=== PATIENT | female | born 1995 | race Caucasian/White ===

== ENCOUNTER 2023-06-07 10:26 | Outpatient (AMB) | payer OTHER, SELFPAY ==
--- NOTE | 2023-06-07 10:47 | MHC.PC.OV ---
Vital Signs 06/07/23 10:50 Height 5 ft 1 in Weight 299 lb BMI 56.5 Blood Pressure Location Lt brachial Position Sitting Pulse Source Pulse Oximeter Oxygen Delivery Method Room Air Intake Visit Reasons: follow up/ forms Intake Note: patient did not want to get vitals taken due to anxiety, at home she got 125/79 with a pulse of 77. Allergies No Known Allergies [No Known Allergies*] Allergy (Verified 06/07/23 10:50) Tobacco use date assessed: 06/07/23 Dental Screening Dental Screen Date: 06/07/23 Did you have a dental visit in the last 12 months?: Yes Did you have a dental problem in the last 6 months where you did not have access to dental care?: No Was dental information given to patient?: Patient has dentist HPI follow up/ forms HPI Details 28-year-old morbidly obese female with a history of allergy problems coming in for follow-up. Last seen in September 2020. L ear pain. fomr- need for visual impairment- retinopathy- Patient sees Dr. Sea Christy for the eye appt. deny any allergy symptoms right now. [facility] Medical History (Updated 06/07/23 @ 11:25 by Ronald England MD) Anxiety Obesity Otitis media Retinal detachment Surgical History History of eye surgery Family History (Updated 06/07/23 @ 11:05 by Vannesa Whitten CMA) Father Diabetes Mother Diabetes Paternal Grandfather Lung cancer Other Mental health disorder Social History Housing: House Patient Tobacco Use Status: Never used Tobacco e-Cigarette/Vaping Use: Never Used Second Hand Smoke Exposure: No Current occupational status: employed Current occupational exposures/hazards: No Cognitive needs: No Hearing needs: No Vision needs: Yes Questionnaire PHQ-9 Over the last 2 weeks, how often have you been bothered by any of the following problems? 1. Little interest or pleasure in doing things: not at all 2. Feeling down, depressed, or hopeless: not at all 3. Trouble falling or staying asleep, or sleeping too much: not at all 4. Feeling tired or having little energy: not at all 5. Poor appetite or overeating: not at all 6. Feeling bad about yourself - or that you are a failure or have let yourself or your family down: not at all 7. Trouble concentrating on things, such as reading the newspaper or watching television: not at all 8. Moving or speaking so slowly that other people could have noticed. Or the opposite - being so fidgety or restless that you have been moving around a lot more than usual: not at all 9. Thoughts that you would be better off or of hurting yourself in some way: not at all Total score: 0 Depression Screening Interpretation: Negative Source: Developed by Drs. Tyshawn Bojorquez, Apple Johnson, Vu Schwartz and colleagues, with an educational jose from [employer]. Thrive Questionnaire Date Thrive assessed: 06/07/23 I am a: Patient What is your living situation today?: I have a steady place to live Within the past 12 months, did the food you bought not last and you didn't have the money to get more?: Never true Within the past 12 months, did you worry whether your food would run out before you got money to buy more?: Never true Do you have trouble paying for medicines?: No Do you have trouble getting transportation to medical appointments?: No Do you have trouble paying your heating and electricity bill?: No Do you have trouble taking care of your child, family member or friend?: No Do you have trouble with day-to-day activities such as bathing, preparing meals, shopping, managing finances, etc.?: No Are you currently unemployed and looking for a job?: No Are you interested in more education?: No Currently or been in a relationship where the following occur: no concerns reported AUDIT C Alcohol Use Questionnaire (AUDIT-C) 1. How often do you have a drink containing alcohol?: Never Total Score: 0 NAYE-7 AMB Questionnaire NAYE-7 Date NAYE - 7 assessed: 06/07/23 Feeling nervous, anxious, or on edge: 3 = Nearly every day Not being able to stop or control worryin = Nearly every day Worrying too much about different things: 3 = Nearly every day Trouble relaxin = Nearly every day Being so restless that it is hard to sit still: 3 = Nearly every day Becoming easily annoyed or irritable: 3 = Nearly every day Feeling afraid as if something awful might happen: 3 = Nearly every day Total NAYE-7 score (0-4 normal; 5-9 mild; 10-14 moderate; 15-21 severe): 21 Source: Developed by Drs. Tyshawn Bojorquez, Apple Johnson, Vu Schwartz and colleagues, with an educational jose from [employer]. Physical exam (Primary Care) Vital Signs: Oxygen Delivery Method Room Air 06/07/23 10:50 BMI result Body Mass Index 56.5 Tobacco/Smoking Status: Tobacco use Status Tobacco use date assessed 06/07/23 06/07/23 11:07 Patient Tobacco Use Status Never used Tobacco 06/07/23 11:07 Tobacco use type 06/07/23 11:07 e-Cigarette/Vaping Use Never Used 06/07/23 11:07 PHQ-9: PHQ-9 Score PHQ-9: Total score 0 06/07/23 11:07 Depression Screening Interpretation: Negative Thrive Assessment: Date of Thrive Assessment Date Thrive assessed 06/07/23 06/07/23 10:55 Currently or been in a relationship where the following occur: no concerns reported Const General: alert; No acute distress Eyes Conjunctivae: conjunctivae normal Resp Auscultation: clear to auscultation bilaterally Cardio Rate: regular rate Rhythm: regular rhythm GI Inspection: Yes normal to inspection Extrem General: Yes normal to inspection and No edema Assessment and Plan Assessment & Plan (1) Obesity: Code(s): E66.9 - Obesity, unspecified Plan: Diet and exercise (2) Allergic rhinitis: Code(s): J30.9 - Allergic rhinitis, unspecified Plan: [id number] Claritin or Madeleine can be used (3) Retinal detachment: Comment: 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
[2023-06-07 10:50] VITALS: BMI 56.5
== END 2023-06-07 12:46 | disposition home or self-care (01) ==
PROVIDERS: PCP Internal Medicine; Visit Provider Internal Medicine
DX: J30.9 Allergic rhinitis, unspecified (principal); E66.9 Obesity, unspecified; H33.21 Serous retinal detachment, right eye; Z68.43 Body mass index [BMI] 50.0-59.9, adult; H54.7 Unspecified visual loss
CPT/HCPCS: 99214

== ENCOUNTER 2023-09-10 10:13 | Outpatient (AMB) | payer OTHER, SELFPAY ==
[2023-09-10 13:20] VITALS: BP 122/82; PULSE 126; TEMP 36.7; O2SAT 97; BMI 55.2
--- NOTE | 2023-09-10 13:20 | AM.OFFWIN_ITS ---
Intake Vital Signs 09/10/23 13:20 Height 5 ft 1 in Weight 292 lb 4 oz BMI 55.2 BP 122/82 Blood Pressure Location Rt brachial Position Sitting Pulse 126 H Pulse Source Pulse Oximeter Temp 98.0 F Temp Source Temporal Artery Scan Pulse Oximetry (%) 97 Oxygen Delivery Method Room Air Intake Visit Reasons: EP AB discomfort since sunday [phone] Intake Note: pt is here for c/o abd discomfort since sunday Patient Tobacco Use Status: Never used Tobacco Allergies No Known Allergies [No Known Allergies*] Allergy (Verified 09/10/23 13:53) Medication List - Last Reconciled 09/10/23 by Jani Fan MD No Known Home Meds Do you need a note to return to daycare/school/sports/work: Yes HPI EP AB discomfort since sunday [phone] HPI Details 28-year-old female presents to the [facility] for a sick visit. Patient is complaining of a low-grade abdominal pain. Symptoms started on Sunday. She was constipated on Sunday and Sunday. Symptoms got much better after a bowel movement. No history of nausea or vomiting. No fevers or chills. [facility] Medical History (Updated 06/07/23 @ 11:31 by Ronald England MD) Retinal detachment Anxiety Obesity Otitis media Surgical History History of eye surgery Family History (Updated 06/07/23 @ 11:05 by Vannesa Whitten CMA) Father Diabetes Mother Diabetes Paternal Grandfather Lung cancer Other Mental health disorder Social History Housing: House Patient Tobacco Use Status: Never used Tobacco e-Cigarette/Vaping Use: Never Used Second Hand Smoke Exposure: No Current occupational status: employed Current occupational exposures/hazards: No Cognitive needs: No Hearing needs: No Vision needs: Yes Physical Exam Vital Signs: Last Vital Signs Temp 98.0 F 09/10/23 13:20 Pulse 126 H 09/10/23 13:20 BP 122/82 09/10/23 13:20 Pulse Ox 97 09/10/23 13:20 Oxygen Delivery Method Room Air 09/10/23 13:20 BMI result Body Mass Index 55.2 Const General: cooperative and healthy appearing Nutritional Appearance: well nourished Orientation/consciousness: patient oriented x3 Limitations: no limitations HEENT Head: Yes normal to inspection Eyes General: appearance normal, both eyes and all related structures Neck Neck: Yes normal visual inspection Chest Chest palpation & inspection: normal palpation of entire chest wall Resp Effort & Inspection: normal respiratory effort Neuro General: patient oriented x3 Assessment & Plan Assessment & Plan (1) Abdominal pain: Code(s): R10.9 - Unspecified abdominal pain Plan: Self-limiting illness. PPI added to the regimen. Coding Level of Care Code Est Pt Level 3 (67037) Diagnoses Abdominal pain R10.9
== END 2023-09-10 14:05 | disposition home or self-care (01) ==
PROVIDERS: PCP Internal Medicine; Visit Provider Internal Medicine
DX: R10.9 Unspecified abdominal pain (principal)
CPT/HCPCS: 99213

== ENCOUNTER 2024-03-26 14:45 | Emergency (ER) | payer OTHER, SELFPAY ==
--- NOTE | ~2024-03-26 | CT_ITS ---
EXAMINATION: CT ABDOMEN AND PELVIS WITH CONTRAST CLINICAL INFORMATION: Diffuse abdominal pain COMPARISON: None available. TECHNIQUE: Multidetector volumetric images were obtained from the superior aspect of the liver through the pubic symphysis following administration 100 mL of Omnipaque 350 intravenous contrast. Sagittal and coronal reformatted images were obtained on the technologist's workstation. Oral contrast: No This CT examination was performed using dose optimization techniques as appropriate, variously including the following: *Automated exposure control *Adjustment of mA and/or kV according to patient size (this includes techniques or standardized protocols for targeted exams where dose is matched to indication/reason for exam; i.e. extremities or head) *Use of iterative reconstruction technique DLP: 1341 mGy-cm FINDINGS: LUNG BASES: The visualized lung bases are unremarkable. LIVER, GALLBLADDER, AND BILIARY TREE: The liver is enlarged at 21 cm in cephalocaudad dimension with decreased attenuation consistent with hepatic steatosis. No focal hepatic lesion or biliary ductal dilatation is present. Gallstones are present in the gallbladder and the gallbladder wall appears thickened with some mild pericholecystic inflammatory change seen. Inflammatory change extends to the superior wall of the hepatic flexure. PANCREAS: Unremarkable. SPLEEN: Spleen is mildly enlarged at 12.4 cm in greatest dimension. ADRENAL GLANDS: Unremarkable. KIDNEYS AND URETERS: The kidneys are normal in size, shape, and attenuation. No hydronephrosis, hydroureter, or calculi seen. No perinephric stranding. BLADDER: Unremarkable. GASTROINTESTINAL TRACT: The small and large bowel are unremarkable aside from some minimal inflammatory change at the hepatic flexure adjacent to the gallbladder. The appendix is unremarkable. ABDOMINAL WALL: No significant hernia is appreciated. Tiny periumbilical hernia seen containing only fat. LYMPH NODES: Normal. VASCULAR: Unremarkable. PELVIC VISCERA: The uterus and adnexa are unremarkable. There is a 2.3 cm right ovarian cyst present which needs no additional imaging or follow-up. OSSEOUS STRUCTURES: Unremarkable. CT/CT abdomen pelvis w IV con IMPRESSION: 1. Cholelithiasis with gallbladder wall thickening and pericholecystic inflammatory change. Findings are consistent with acute cholecystitis. 2. Incidental note made of enlarged fatty liver and mild splenomegaly. Fleischner guidelines were followed.
--- NOTE | ~2024-03-26 | US_ITS ---
EXAMINATION: US ABDOMEN LIMITED CLINICAL INFORMATION: Diffuse abdominal pain. COMPARISON: CT of the abdomen and pelvis from the same day TECHNIQUE: Real-time imaging of the right upper quadrant abdominal viscera. FINDINGS: PANCREAS: Normal. LIVER: Normal. The liver is normal in size. The liver contour is normal. Parenchymal echogenicity is normal. No focal hepatic lesion. There is no intrahepatic biliary duct dilatation seen. GALLBLADDER: The gallbladder is normal in size. There are gallstones. There is focal gallbladder wall thickening and fluid in the gallbladder wall in the fundus. COMMON BILE DUCT: Normal in caliber measuring 0.3 cm in diameter. RIGHT KIDNEY: Normal. No hydronephrosis. No renal calculi or focal parenchymal lesions. The kidney measures 10.8 cm in maximum dimension. FREE FLUID: None. US/US abdomen limited IMPRESSION: Gallstones. Focal gallbladder wall thickening and fluid in the gallbladder wall in the fundus. Findings are questionable for cholecystitis versus adenomyomatosis of the gallbladder wall.
[2024-03-26 15:03] VITALS: BP 154/94; PULSE 123; RESP 18; TEMP 36.7; O2SAT 99; BMI 57.4
--- NOTE | 2024-03-26 15:06 | ED.GENADULT ---
HPI - General Adult General Stated complaint: Nausea, vomiting, back pain Related Data Previous Rx's ?Medication ?Instructions ?Recorded pantoprazole 40 mg tablet,delayed 40 mg PO DAILY #14 tabs 09/10/23 release Allergies Allergy/AdvReac Type Severity Reaction Status Date / Time No Known Allergies Allergy Verified 03/26/24 15:07 [No Known Allergies*] [facility] Past Medical History Medical History (Updated 12/07/23 @ 18:35 by Ronald England MD) Retinal detachment Anxiety Obesity Otitis media Surgical History History of eye surgery Family History Family History (Updated 06/07/23 @ 11:05 by Vannesa Whitten CMA) Father Diabetes Mother Diabetes Paternal Grandfather Lung cancer Other Mental health disorder Social History Social History Housing: House Patient Tobacco Use Status: Never used Tobacco e-Cigarette/Vaping Use: Never Used Second Hand Smoke Exposure: No Current occupational status: employed Current occupational exposures/hazards: No Cognitive needs: No Hearing needs: No Vision needs: Yes Course Course Course Narrative: This is an RME done by [facility]: Additional HPI, ROS, PE not included below will be deferred to primary provider. 29-year-old female presents with abdominal pain, flank pain/back pain, nausea, vomiting ongoing for the past few days worsening. No associated trauma. No history of kidney stones. No nausea, vomiting, urinary changes, changes in bowel habits, numbness, tingling, saddle paresthesias. Patient ambulatory into triage Appearance: Alert.? Oriented X3.? No acute cardiopulmonary distress distress.? Head: Normocephalic, atraumatic, no step-offs or deformities ENT: Pharynx normal.??External ears normal, TMs normal bilaterally and EAC's normal. No pain with manipulation of external ears bilaterally. No mastoid tenderness. Neck: Normal inspection.? Neck supple.? CVS: Pulses normal.?RRR Respiratory: No respiratory distress.?CTA Abdomen: Soft and nontender.? Skin: ? Normal skin color. Extremities: 5/5 strength to bilateral upper and lower extremities Neuro: Oriented X 3.? No motor deficit.? No sensory deficit. Discharge Plan Discharge Prescriptions: No Action pantoprazole 40 mg tablet,delayed release (DR/EC) 40 mg PO DAILY Qty: 14 0RF Print Language: [place] Citizen
[2024-03-26 16:05] LABS: MANUAL DIFF FLAG NO
--- NOTE | 2024-03-26 16:07 | PC.NURSE ---
a&ox4. vss and up to date aside from being slightly hypertensive. pt presents to the ED w/ ongoing bilateral flank pain x 2 weeks. atraumatic. pt also c/o lower abd pain/n/v/d x this am. no positive effect w/ tylenol or ibuprofen. abd tender upon palpation. pt denies urinary sx/fever/chills. 20gIV placed in the left forearm - labs obtained/sent to lab. UA obtained/sent to lab. pt seen by ED provider/aware of plan of care moving forward. no sob/wob noted. respirations even and unlabored. plan of care ongoing. call bridges placed within reach.
--- NOTE | 2024-03-26 16:09 | ED_ITS ---
HPI - Abdominal Pain General Chief Complaint: Abdominal Pain Stated Complaint: Nausea, vomiting, back pain Time Seen by Provider: 03/26/24 15:57 Source: patient Mode of arrival: ambulatory Limitations: no limitations History of Present Illness ED Provider: Dr. Coby Wadsworth HPI narrative: Patient comes to the emergency room complaining of bilateral lower back pain/ flank pain and abdominal pain. Patient states that over last 2 weeks, she has had intermittent pain, but she puts a hot compress and takes ibuprofen and the pain self-resolved. However, over the last 24 hours, the pain has been constant, nonradiating. Patient had 1 episode of nausea/ vomiting, no diarrhea. Denies fever or chills. Denies any injury or trauma. Related Data Previous Rx's ?Medication ?Instructions ?Recorded pantoprazole 40 mg tablet,delayed 40 mg PO DAILY #14 tabs 09/10/23 release ketorolac 10 mg tablet 10 mg PO Q8H PRN pain #10 tabs 03/26/24 ondansetron HCl 4 mg tablet 4 mg PO Q8H PRN nausea and 03/26/24 vomiting #10 tabs oxycodone 5 mg tablet 5 mg PO BID PRN pain #6 tabs 03/26/24 Allergies Allergy/AdvReac Type Severity Reaction Status Date / Time No Known Allergies Allergy Verified 03/26/24 15:07 [No Known Allergies*] Review of Systems Review of Systems Constitutional : No Weight loss, No Fever, No Chills, No Night Sweats, No Fatigue, No Malaise ENT/Mouth : No Hearing loss, No Ear Pain, No Nasal Congestion, No Sinus Pain, No Hoarseness, No sore throat, No Rhinorrhea, No Swallowing Difficulty Eyes: No Eye Pain, No Swelling, No Redness, No Foreign Body, No Discharge, No Vision Changes Cardiovascular : No Chest Pain, No SOB, No Dyspnea on Exertion, No Orthopnea, No Edema, No Palpitations Respiratory : No Cough, No Sputum, No Wheezing, No Smoke Exposure, No Dyspnea Gastrointestinal Complaining of 1 episode of nausea/vomiting, No Diarrhea, No Constipation, No abdominal Pain, No Hematochezia, No Melena Genitourinary : no irregular bleeding, No Dysuria, No Urinary Frequency, No Hematuria, No Urinary Incontinence, No Urgency, No Urinary Flow Changes, No Hesitancy Musculoskeletal : complaining of bilateral back pain /flank pain. No joint pain, No Myalgias, No Joint Swelling Skin : No Skin Lesions, No rash Neuro : No Weakness, No Numbness, No Paresthesias, No Loss of Consciousness, No Dizziness, No Headache Psych : No Anxiety/Panic, No Depression, No SI/HI/AH/VH, No Social Issues, Heme/Lymph: No Bruising, No Bleeding,No Lymphadenopathy Endocrine : No Polyuria, No Polydipsia, No Temperature Intolerance [facility] Past Medical History Medical History Retinal detachment Anxiety Obesity Otitis media Surgical History History of eye surgery Family History Family History (Updated 06/07/23 @ 11:05 by Vannesa Whitten CMA) Father Diabetes Mother Diabetes Paternal Grandfather Lung cancer Other Mental health disorder Social History Social History Housing: House Patient Tobacco Use Status: Never used Tobacco e-Cigarette/Vaping Use: Never Used Second Hand Smoke Exposure: No Current occupational status: employed Current occupational exposures/hazards: No Cognitive needs: No Hearing needs: No Vision needs: Yes Physical Exam ED Vital Signs: Vital Signs - 24 hr 03/26/24 15:03 03/26/24 17:40 03/26/24 20:17 Temperature 98.1 F 98.0 F 98.0 F Pulse Rate 123 H 109 H 107 H Respiratory Rate 18 18 16 Blood Pressure 154/94 H 123/75 138/78 Pulse Oximetry 99 100 Oxygen Delivery Method Room Air Room Air Room Air BMI result Body Mass Index 57.4 Const Other: Appearance: Alert. Oriented X3. No acute distress. Eyes: Patient as histoy of partial b ENT: Pharynx normal. Neck: Normal inspection. Neck supple. No lymph nodes noted. No crepitus CVS: Normal heart rate and rhythm. Pulses normal. Normal S1 and S2 Respiratory: No respiratory distress. Breath sounds normal. No Wheezing. No rales Abdomen: Soft and nontender. No rigidity. No distention. Skin: Skin warm and dry. Normal skin color. Normal skin turgor. Extremities: No lower extremity edema. No Lacerations. No Rash Neuro: Oriented X 3. No motor deficit. No sensory deficit. Moving all extremities. No slurred speech. CN 2 through 12 grossly intact Psych: calm, cooperative, normal affect Medical Decision Making Medical Decision Making [facility] Narrative: - my interpretation of labs: Normal hematology and chemistry, normal LFTs - my interpretation of abdomen: Gallbladder. Radiology report: Acute cholecystitis - on physical exam, patient has negative Aparicio sign, no rebound, no guarding, looks fairly comfortable, LFTs are normal, unlikely to be acute cholecystitis. - An ultrasound shows gallbladder wall thickening with fluid, possible cholecystitis versus adenomyomatosis - patient has received a dose of ketorolac and morphine. Patient feeling much better. - I discussed the patient and radiology findings with Dr. Remy from surgery, since patient is doing much better, patient can go home. However, patient does have a large gallstone and will eventually need a cholecystectomy. - I discussed the options with the patient, Being admitted in likely has surgery tomorrow if patient is in significant amount of pain versus following up outpatient with Dr. Remy. Patient states that she feels well, does not want to be admitted today, prefers to follow up with Dr. Remy and is aware that she may need scheduled cholecystectomy - I discussed with the patient that if she continues having pain and she has no relief from her pain medications, she needs to come back before her appointment were surgery, in plan to being admitted to the hospital for cholecystectomy. Patient agrees with plan Differential Diagnosis Differential Diagnoses: The differential diagnosis associated with the presentation includes ( cholecystitis, pancreatitis, kidney stones) Admission/Observation Consideration of admission/observation: Escalation of care including admission/observation considered ( admission was offered. Patient prefers to follow-up outpatient) Consult Healthcare Provider Management of the patient was discussed with: Specialty Therapist Lab Data [facility] Lab Attestation statement: I reviewed the patient's lab results. 03/26/24 16:01 03/26/24 16:01 Labs: Lab Results 03/26/24 Range/Units 16:01 WBC 11.0 H (4.8-10.8) X10*3/uL RBC 4.91 (4.20-5.50) X10*6/uL Hgb 14.6 (12.0-16.0) g/dl Hct 42.6 (37.0-47.0) % MCV 86.8 (80.0-98.0) fL MCH 29.7 (27.0-33.0) pg MCHC 34.3 (31.0-35.0) g/dl RDW 12.3 (11.0-16.0) % Plt Count 408 H (160-400) X10*3/uL MPV 9.2 L (9.4-12.3) fL Immature Gran % (Auto) 0.5 H (0.0-0.4) % Neut % (Auto) 80.7 H (45-73) % Lymph % (Auto) 13.1 L (20-40) % [place] % (Auto) 4.7 (2-11) % Eos % (Auto) 0.5 (0-4) % Baso % (Auto) 0.5 (0-2) % Lymph # (Auto) 1.4 (1.2-4.9) X10*3/uL [place] # (Auto) 0.5 (0.1-1.2) X10*3/uL Eos # (Auto) 0.1 (0.0-0.4) X10*3/uL Baso # (Auto) 0.1 (0.0-0.2) X10*3/uL Abs Immat Gran (auto) 0.05 H (0.00-0.03) X10*3/uL Absolute Neuts (auto) 8.9 H (2.0-8.3) x10*3/uL Absolute Nucleated RBC 0.000 (0.0-0.012) X10*3/uL Nucleated RBC % (auto) 0.0 (0.0-0.2) /100WBC Sodium 138 (135-145) mmol/L Potassium 3.9 (3.3-5.1) mmol/L Chloride 105 (96-108) mmol/L Carbon Dioxide 23 (22-29) mmol/L Anion Gap 14 (12-20) BUN 8 L (9-16) mg/dL Creatinine 0.84 (0.5-1.4) mg/dL Estim Creat Clear Calc 132.9 Estimated GFR > 60 Random Glucose 100 (60-115) mg/dL Calcium 9.1 (8.4-10.2) mg/dL Total Bilirubin 0.4 (0.0-1.0) mg/dL AST 18 (5-31) U/L ALT 21 (0-31) U/L Alkaline Phosphatase 47 (39-117) U/L Total Protein 7.7 (6.5-8.0) g/dL Albumin 4.1 (3.5-5.0) g/dL Lipase 15 (8-78) U/L Beta HCG, Quant < 2 mIU/mL Urine Color Yellow Urine Appearance Cloudy Urine pH 5.5 (5.0-9.0) Ur Specific [place] 1.020 (1.005-1.025) Urine Protein Negative (Neg-Trace) mg/dL Urine Glucose (UA) Negative (Negative) mg/dL Urine Ketones Negative (Negative) mg/dL Urine Blood Negative (Negative) Urine Nitrite Negative (Negative) Ur Leukocyte Esterase Small (1+) H (Negative) Urine RBC 0-2 (0-2) /HPF Urine WBC 0-5 (0-5) /HPF Ur Squamous Epith Cells 3-5 (0-2) /HPF Urine Bacteria Trace (None Seen) Hyaline Casts 0-2 (0-2) /LPF Independent Interpretation I performed an independent interpretation of an: CT Scan Radiology Impression Discussion of test interpretation with radiology: I have reviewed the radiologist's reading. Radiologist Impression: Gallstones. Focal gallbladder wall thickening and fluid in the gallbladder wall in the fundus. Findings are questionable for cholecystitis versus adenomyomatosis of the gallbladder wall. FINDINGS: LUNG BASES: The visualized lung bases are unremarkable. LIVER, GALLBLADDER, AND BILIARY TREE: The liver is enlarged at 21 cm in cephalocaudad dimension with decreased attenuation consistent with hepatic steatosis. No focal hepatic lesion or biliary ductal dilatation is present. Gallstones are present in the gallbladder and the gallbladder wall appears thickened with some mild pericholecystic inflammatory change seen. Inflammatory change extends to the superior wall of the hepatic flexure. PANCREAS: Unremarkable. SPLEEN: Spleen is mildly enlarged at 12.4 cm in greatest dimension. ADRENAL GLANDS: Unremarkable. KIDNEYS AND URETERS: The kidneys are normal in size, shape, and attenuation. No hydronephrosis, hydroureter, or calculi seen. No perinephric stranding. BLADDER: Unremarkable. GASTROINTESTINAL TRACT: The small and large bowel are unremarkable aside from some minimal inflammatory change at the hepatic flexure adjacent to the gallbladder. The appendix is unremarkable. ABDOMINAL WALL: No significant hernia is appreciated. Tiny periumbilical hernia seen containing only fat. LYMPH NODES: Normal. VASCULAR: Unremarkable. PELVIC VISCERA: The uterus and adnexa are unremarkable. There is a 2.3 cm right ovarian cyst present which needs no additional imaging or follow-up. OSSEOUS STRUCTURES: Unremarkable. CT/CT abdomen pelvis w IV con IMPRESSION: 1. Cholelithiasis with gallbladder wall thickening and pericholecystic inflammatory change. Findings are consistent with acute cholecystitis. 2. Incidental note made of enlarged fatty liver and mild splenomegaly. Medications Administered Discontinued Medications Generic Name Dose Route Start Last Admin Trade Name Freq PRN Reason Stop Dose Admin Sodium Chloride 1,000 mls @ 999 mls/hr 03/26/24 16:09 03/26/24 17:41 Ns IVCONT 03/26/24 17:09 Infused .Q1H1M ONE Infusion Iohexol 100 ml 03/26/24 16:49 03/26/24 16:49 Iohexol 350 Mg/Ml 100 Ml Infus..Btl IV 03/26/24 16:50 100 ml ONCE ONE Administration Ketorolac Tromethamine 30 mg 03/26/24 16:09 03/26/24 16:19 Ketorolac Tromethamine 30 Mg/Ml Vial IVPUSH 03/26/24 16:10 30 mg ONCE ONE Administration Morphine Sulfate 2 mg 03/26/24 17:34 03/26/24 17:41 Morphine Sulfate 2 Mg/Ml Cartridge IVPUSH 03/26/24 17:35 2 mg ONCE ONE Administration Protocol Morphine Sulfate 2 mg 03/26/24 18:31 03/26/24 19:01 Morphine Sulfate 2 Mg/Ml Cartridge IVPUSH 03/26/24 18:32 2 mg ONCE ONE Administration Protocol Critical Care Time Critical Care Time Critical Care Time: Yes Total Critical Care Time: 60 Attestation: I have personally provided critical care time. Time includes review of lab data, radiology results, discussion with consultants, and monitoring for potential decompensation. Intervention performed as documented. Discharge Plan Discharge Clinical Impression: Cholelithiasis Patient Disposition: Home, Self-Care Instructions: Gallstones (ED) Additional Instructions: Please follow-up with your primary care physician tomorrow. If you have any worsening or new symptoms, please return to the emergency room or call 911 Prescriptions: New ketorolac 10 mg tablet 10 mg PO Q8H PRN (Reason: pain) Qty: 10 0RF Rx Instructions: maximum total duration of 5 days from all oral, intranasal, or parenteral formulations oxycodone 5 mg tablet 5 mg PO BID PRN (Reason: pain) Qty: 6 0RF Rx Instructions: Partial Fill upon patient request. use only if ketorolac does not help with the pain ondansetron HCl 4 mg tablet 4 mg PO Q8H PRN (Reason: nausea and vomiting) Qty: 10 0RF No Action pantoprazole 40 mg tablet,delayed release (DR/EC) 40 mg PO DAILY Qty: 14 0RF Print Language: Kisw[place]
[2024-03-26 16:12] LABS: Basophils Absolute Auto 0.1 X10*3/uL (0.0-0.2); Basophils Percent Auto 0.5 % (0-2); Eosinophils Absolute Auto 0.1 X10*3/uL (0.0-0.4); Eosinophils Percent Auto 0.5 % (0-4); Hematocrit 42.6 % (37.0-47.0); Hemoglobin 14.6 g/dl (12.0-16.0); Imm Gran Abs Auto 0.05 X10*3/uL (0.00-0.03); Imm Gran Pct Auto 0.5 % (0.0-0.4); Lymphocytes Absolute Auto 1.4 X10*3/uL (1.2-4.9); Lymphocytes Percent Auto 13.1 % (20-40); Mean Corpuscular HGB Conc 34.3 g/dl (31.0-35.0); Mean Corpuscular Hemoglobin 29.7 pg (27.0-33.0); Mean Corpuscular Volume 86.8 fL (80.0-98.0); Mean Platelet Volume 9.2 fL (9.4-12.3); Monocytes Absolute Auto 0.5 X10*3/uL (0.1-1.2); Monocytes Percent Auto 4.7 % (2-11); Neutrophils Absolute Auto 8.9 x10*3/uL (2.0-8.3); Neutrophils Percent Auto 80.7 % (45-73); Platelet Count 408 X10*3/uL (160-400); Red Blood Count 4.91 X10*6/uL (4.20-5.50); Red Cell Distribution Width 12.3 % (11.0-16.0)
[2024-03-26] MEDS: 0.9 % Sodium Chloride 1,000 ML 999 ML IVCONT (16:19)
[2024-03-26] MEDS: Ketorolac Tromethamine 30 MG/ML VIAL IVPUSH (16:19)
--- NOTE | 2024-03-26 16:21 | PC.NURSE ---
pt c/o 05/07 abd pain. medication/IVF administered per provider order. effectiveness pending. pt waiting to go to CT at this time. pt resting comfortably w/ the lights dimmed. call bridges placed within reach.
[2024-03-26 16:22] LABS: Appearance Urine Cloudy; Color Urine Yellow; Glucose Urine UA Negative (Negative); Leukocyte Esterase Urine Small (1+) (Negative); Nitrite Urine Negative (Negative); PH 5.5 (5.0-9.0); UMIC TRIGGER UACC YES; Urine Blood Negative (Negative); Urine Ketones Negative (Negative); Urine Protein Negative (Neg-Trace)
[2024-03-26 16:28] LABS: Alanine Aminotransferase 21 U/L (0-31); Albumin Level 4.1 g/dL (3.5-5.0); Alkaline Phosphatase 47 U/L (39-117); Anion Gap 14 (12-20); Aspartate Amino Transferase 18 U/L (5-31); Bilirubin Total 0.4 mg/dL (0.0-1.0); Blood Urea Nitrogen 8 mg/dL (9-16); Calcium 9.1 mg/dL (8.4-10.2); Carbon Dioxide 23 mmol/L (22-29); Chloride 105 mmol/L (96-108); Creatinine Clr Calc Pharmacy 132.9; Estimated Glomerular Filt Rate > 60; Glucose Random 100 mg/dL (60-115); HCG Quantitative < 2 mIU/mL; Lipase 15 U/L (8-78); Potassium 3.9 mmol/L (3.3-5.1); Sodium 138 mmol/L (135-145); Total Protein 7.7 g/dL (6.5-8.0)
--- NOTE | 2024-03-26 16:41 | PC.NURSE ---
pt to CT at this time.
[2024-03-26] MEDS: iohexoL 350 MG/ML 100 ML INFUS..BTL IV (16:49)
[2024-03-26 16:55] LABS: Bacteria Urine Trace (None Seen); Hyaline Casts Urine 0-2 /LPF (0-2); RBC Urine 0-2 /HPF (0-2); UACC Culture Trigger YES; WBC Urine 0-5 /HPF (0-5)
[2024-03-26 17:40] VITALS: BP 123/75; PULSE 109; RESP 18; TEMP 36.7; O2SAT 100
[2024-03-26] MEDS: Morphine Sulfate 2 MG/ML CARTRIDGE IVPUSH ×3 (17:41→21:24)
--- NOTE | 2024-03-26 17:55 | PC.NURSE ---
vss and up to date aside from being slightly tachy on the lunchroom monitor. pt c/o increase in abd pain despite medication administration provider notified/aware. pt medicated per provider order. effectiveness pending. pt waiting for CT results at this time. plan of care ongoing. call bridges placed within reach.
[2024-03-26 20:17] VITALS: BP 138/78; PULSE 107; RESP 16; TEMP 36.7
[2024-03-26 21:24] VITALS: RESP 18
[2024-03-26 21:35] VITALS: BP 138/78; PULSE 107; RESP 16; TEMP 36.7; O2SAT 100
== END 2024-03-26 21:38 | disposition home or self-care (01) ==
PROVIDERS: Physician Assistant; Emergency Provider Emergency Medicine; PCP Internal Medicine
DX: K80.20 Calculus of gallbladder without cholecystitis without obstruction (principal); R10.9 Unspecified abdominal pain; E66.9 Obesity, unspecified; Z68.43 Body mass index [BMI] 50.0-59.9, adult; Z79.899 Other long term (current) drug therapy
CPT/HCPCS: 36415; 74177; 76705; 80053; 81001; 83690; 84702; 85025; 87086; 96361; 96374; 96375; 96376; 99285; J1885; J2270; Q9967

== ENCOUNTER 2024-03-27 10:16 | Outpatient (AMB) | payer OTHER, SELFPAY ==
--- NOTE | 2024-03-27 10:23 | A.OFFVIS_ITS ---
Vital Signs 03/27/24 10:28 Height 5 ft 1 in Weight 303 lb BMI 57.2 BP 142/85 H Blood Pressure Location Lt brachial Position Sitting Pulse 100 Intake Visit Reasons: ER follow up cholelithasis Intake Note: Patient is seen in office for ER follow up visit, following cholelithasis. 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 She presented to the emergency department for further evaluation. She reports her pain was 9/10 in severity. Workup in the emergency department revealed normal LFTs and CBC however CT and ultrasound confirmed gallstones within the gallbladder. After she was given pain medication in the emergency department she felt much improved was hooper bsequently discharged to home. She returns today to discuss possible treatment for her cholelithiasis/cholecystitis. She denies any previous episodes of similar pain. She denies previous abdominal surgeries. [facility] Medical History Retinal detachment Anxiety Obesity Otitis media Surgical History History of eye surgery Family History Father Diabetes Mother Diabetes Paternal Grandfather Lung cancer Other Mental health disorder Social History Housing: House Patient Tobacco Use Status: Never used Tobacco e-Cigarette/Vaping Use: Never Used Second Hand Smoke Exposure: No Current occupational status: employed Current occupational exposures/hazards: No Cognitive needs: No Hearing needs: No Vision needs: Yes Review of Systems Const All systems reviewed & are unremarkable except as noted in HPI and below GI Reports abdominal pain, Reports nausea and Reports vomiting Physical Exam Vital Signs: Last Vital Signs Pulse 100 03/27/24 10:28 BP 142/85 H 03/27/24 10:28 BMI result Body Mass Index 57.2 Const General: cooperative and no acute distress Nutritional Appearance: well nourished Orientation/consciousness: patient oriented x3 Limitations: no limitations HEENT Head: Yes normocephalic and Yes atraumatic Ears: hearing grossly normal bilaterally Resp Effort & Inspection: normal respiratory effort, no audible wheezes, no cough and no respiratory distress Cardio Jugular venous distension: no JVD GI Other: Negative Aparicio sign Inspection: Yes normal to inspection Palpation (GI): Soft to palpation, nontender, no guarding and not rigid Skin Other: Warm, dry, no rash Neuro General: patient oriented x3 Extrem General: Yes normal to inspection and Yes no clubbing, cyanosis or edema Assessment & Plan Assessment & Plan (1) Cholelithiasis: Code(s): K80.20 - Calculus of gallbladder without cholecystitis without obstruction Category: Medical Qualifiers: Cholelithiasis location: gallbladder Cholecystitis presence: with cholecystitis Cholecystitis acuity: acute Biliary obstruction: without biliary obstruction Qualified Code(s): K80.00 - Calculus of gallbladder with acute cholecystitis without obstruction Plan 29-year-old female patient presenting with complaints of abdominal pain beginning in the back and then radiating into the right upper quadrant associated with nausea and vomiting. Workup revealed a calculus of the gallbladder. She continues to have abdominal pain however examination today reveals a negative Aparicio sign. I recommended laparoscopic or possible open cholecystectomy for her acute cholecystitis. After discussion of the procedure, risks, and alternatives, she consents to the surgery. She will be scheduled at her earliest convenience. Medications: Refilled oxycodone Partial Fill upon patient request. use only if ketorolac does not help with the pain 5 mg PO BID PRN 14 tabs 0RF pain K80.20 - Calculus of gallbladder without cholecystitis without obstruction ondansetron HCl 4 mg PO Q8H PRN 10 tabs 0RF nausea and vomiting Coding Level of Care Code New Pt Level 4 (99300) Diagnoses Calculus of gallbladder with acute cholecystitis without obstruction K80.00 Cholelithiasis location: gallbladder Cholecystitis presence: with cholecystitis Cholecystitis acuity: acute Biliary obstruction: without biliary obstruction
[2024-03-27 10:28] VITALS: BP 142/85; PULSE 100; BMI 57.2
== END 2024-03-27 10:49 | disposition home or self-care (01) ==
PROVIDERS: PCP Internal Medicine; Visit Provider Surgery
DX: K80.00 Calculus of gallbladder with acute cholecystitis without obstruction (principal)
CPT/HCPCS: 99204

== ENCOUNTER → 2024-03-27 10:16 | Outpatient (BNVA) | payer OTHER, SELFPAY | PROVIDERS: PCP Internal Medicine; Visit Provider Surgery ==

== ENCOUNTER 2024-03-31 06:49 | Day surgery (SDC) | payer OTHER, SELFPAY ==
[2024-03-31 06:53] VITALS: BMI 56.7
[2024-03-31 07:27] LABS: UPreg QC Valid YES
[2024-03-31 07:28] LABS: Urine Pregnancy NEGATIVE (NEGATIVE)
[2024-03-31 07:52] VITALS: BP 150/104; PULSE 102; RESP 16; TEMP 36.1; O2SAT 98
[2024-03-31] MEDS: Lactated Ringers 1,000 ML 100 ML IVCONT (07:53)
--- NOTE | 2024-03-31 08:10 | P.CONAN_ITS ---
Documented by User: Anais Mercer NP 03/28/24 09:00 HPI - Anesthesia Eval Consult details Narrative: 29yo F for Cholecystectomy Laparoscopic, possible open BMI 57 PMFSH Active Problems Active Problems: All Active Problems Cholelithiasis (Acute) COVID-19 virus infection (Acute) Visual impairment of left eye (Acute) Retinal detachment (Acute) Otitis externa (Acute) Acute sinusitis (Acute) Chronic ear pain (Acute) Allergic rhinitis (Acute) Anxiety (Acute) Obesity (Acute) Otitis media (Acute) Past Medical History Medical History Retinal detachment Anxiety Obesity Otitis media Family History Family History Father Diabetes Mother Diabetes Paternal Grandfather Lung cancer Other Mental health disorder Surgical History Surgical History History of eye surgery Social History Social History Housing: House Patient Tobacco Use Status: Never used Tobacco e-Cigarette/Vaping Use: Never Used Second Hand Smoke Exposure: No Use of substances other than those prescribed or required for medical reasons: No Are you DNR?: No Advance Directives: No Advance Directives Information Provided: Yes Current occupational status: employed Current occupational exposures/hazards: No Cognitive needs: No Hearing needs: No Vision needs: Yes Meds Allergies Allergy/AdvReac Type Severity Reaction Status Date / Time No Known Allergies Allergy Verified 03/31/24 06:58 [No Known Allergies*] Exam Pertinent Lab Results Pertinent Lab Results: Laboratory Tests 03/26/24 16:01 WBC 11.0 H Hgb 14.6 Hct 42.6 Plt Count 408 H Sodium 138 Potassium 3.9 Chloride 105 Carbon Dioxide 23 BUN 8 L Creatinine 0.84 Assessment and Plan Assessment Anesthesia Assessment: Chart Reviewed Documented by User: Evie Aguiar DO 03/31/24 08:11 [facility] Past Medical History Medical History Retinal detachment Anxiety Obesity Otitis media Family History Family History Father Diabetes Mother Diabetes Paternal Grandfather Lung cancer Other Mental health disorder Family history of problems with anesthesia: No Surgical History Surgical History History of eye surgery History of Problems with Anesthesia: No Social History Social History Housing: House Patient Tobacco Use Status: Never used Tobacco e-Cigarette/Vaping Use: Never Used Second Hand Smoke Exposure: No Use of substances other than those prescribed or required for medical reasons: No Are you DNR?: No Advance Directives: No Advance Directives Information Provided: Yes Current occupational status: employed Current occupational exposures/hazards: No Cognitive needs: No Hearing needs: No Vision needs: Yes Meds Allergies Allergy/AdvReac Type Severity Reaction Status Date / Time No Known Allergies Allergy Verified 03/31/24 06:58 [No Known Allergies*] Exam Exam Date and Time: March 31, 2024 0808 Height,Weight and Vital Signs: Height 5 ft 1 in Weight 136.078 kg Vital Signs Temperature 97.0 F 03/31/24 07:52 Pulse Rate 102 H 03/31/24 07:52 Respiratory Rate 16 03/31/24 07:52 Blood Pressure 150/104 H 03/31/24 07:52 Pulse Oximetry 98 03/31/24 07:52 Oxygen Delivery Method Room Air 03/31/24 07:52 Temperature 97.0 F 03/31/24 07:52 Pulse Rate 102 H 03/31/24 07:52 Respiratory Rate 16 03/31/24 07:52 Blood Pressure 150/104 H 03/31/24 07:52 Pulse Oximetry 98 03/31/24 07:52 Oxygen Delivery Method Room Air 03/31/24 07:52 Airway Mallampati Class: II TM Dist: >3cm Neck ROM: Full Loose/Missing/Broken Teeth: No (patient denies any loose or broken teeth) Heart: S1S2 Lungs: CTAB Assessment and Plan Assessment Anesthesia Assessment: Anesthesia Plan Discussed and Chart Reviewed Final Anesthetic Review Family History of Problems with Anesthesia: No History of Problems with Anesthesia: No NPO: Yes ASA Class: III Final Preanesthetic Review: No Changes in Pt Med Stat, Meds/Allgs Chart Reviewed, Consent Obtained/Reviewed and Anes Risks/Benef Reviewed Patient Risk: Intermediate Procedure Risk: Low Anesthetic Plan Anesthetic Plan: GA and Agree w/ Assess. and Plan Disposition: Standard PACU
--- NOTE | 2024-03-31 08:26 | MHC.SHP ---
Pre-Procedural Eval Section A - 24 Hr Update-Section A only Date of Service: 03/31/24 The patient is an INPATIENT: No Changes since office visit: Yes Patient answered all questions; No Cold of Flu in the past 2 weeks, No New Medical Problems and No Changes in Medication The patient has been examined within 24 hours of the surgical procedure. The History & Physical has been completed within 30 days and I have reviewed it.: Yes Section B - Complete if H&P > 30 days Chief Complaint: Calculus of gallbladder with acute cholecystitis Allergies: Allergies Allergy/AdvReac Type Severity Reaction Status Date / Time No Known Allergies Allergy Verified 03/31/24 06:58 [No Known Allergies*] Plan Diagnosis/Plan: Unchanged I have reviewed the history and physical and performed a pertinent physical examination on my patient. No changes have occurred unless specified. Time Spent With Patient Time: Total time managing care of this patient today ____ minutes.
--- NOTE | 2024-03-31 10:37 | P.OP_ITS ---
Operative Note Operative Note Date of Service: 03/31/24 Narrative: Preoperative diagnosis: Acute cholecystitis due to cholelithiasis Postoperative diagnosis: Same Procedure: Laparoscopic cholecystectomy Surgeon: Sylvester Remy MD Gaming Floor Supervisor: Aashish Patel MD Anesthesia: General endotracheal Indications for procedure: 29-year-old female patient with persistent right upper quadrant abdominal pain found to have a thickened gallbladder with large gallstone Operative findings:. Acutely inflamed gallbladder with thick peel and large gallstone consistent with acute cholecystitis Specimen: gallbladder Estimated blood loss: 25 mL Complications: None Procedure details: Patient was brought to the OR and placed in a supine position. After administering general anesthesia the patient's abdomen was prepped with ChloraPrep and draped in a sterile fashion. A surgical time-out was called the consent confirmed. Patient received preoperative antibiotics and Venodyne boots were in place. Local anesthesia consisting of 0.5% Sensorcaine without epinephrine was infiltrated in a periumbilical region. A 5 mm incision was made above the umbilicus in a transverse fashion. The Veress needle was then inserted while elevating abdominal cavity with towel clips. After positive drop test the abdomen was insufflated to a pressure of 15 mm of mercury. The Veress needle was then removed and a 5 mm trocar inserted. The camera was inserted in the abdomen explored. A 12 mm trocar was then placed in the epigastrium. Two 5 mm trocars placed in the right upper quadrant by the financial administrative assistant. The patient was placed in reverse Trendelenburg positioning and rotated to the left. The gallbladder was grasped with the fundus and retracted cephalad by the financial administrative assistant. The infundibulum was then grasped and retracted away from the liver bed, also by the financial administrative assistant. The Dolphin dissected was then used by the surgeon to dissect the peritoneum off the infundibulum to reveal the junction with the cystic duct. Cystic artery was noted slightly medial and posterior to the cystic duct. After obtaining a critical view the cystic duct was doubly clipped and divided. The cystic artery was then doubly clipped and divided. The gallbladder was then dissected off the liver bed using electrocautery with an L hook. Hemostasis was assured all times using the electrocautery. When the gallbladder is completely dissected off the liver bed was placed in an Endo-Catch bag and brought out through the epigastric incision. The gallbladder was sent to pathology for further examination. The abdomen was then re-examined. The liver bed was irrigated and suctioned dry. No bleeding or bile leak could be identified. CO2 was then evacuated and all trocars removed. Fascia was closed at the epigastric incision using a [id number] 0 Polysorb suture. Skin was closed in all incisions using a subcuticular 4 0 Polysorb suture by both the surgeon and financial administrative assistant. Sterile dressings consisting of Steri-Strips, 2 x 2 gauze, and Tegaderm were then applied. The patient tolerated the procedure well. Sponge instrument and needle counts reported as correct. The patient was transferred to PACU in stable condition.
[2024-03-31 10:50] VITALS: BP 147/97; PULSE 88; RESP 16; TEMP 36.2; O2SAT 96
[2024-03-31 10:55] VITALS: BP 152/95; PULSE 98; RESP 16; O2SAT 96
[2024-03-31 11:00] VITALS: BP 149/89; PULSE 107; RESP 18; O2SAT 95
[2024-03-31 11:05] VITALS: BP 156/90; PULSE 94; RESP 18; O2SAT 96
[2024-03-31 11:20] VITALS: BP 144/94; PULSE 93; RESP 16; TEMP 36.1; O2SAT 97
[2024-03-31] MEDS: oxyCODONE HCl Immed Release 5 MG TABLET PO (11:25)
== END 2024-03-31 12:21 | disposition home or self-care (01) ==
PROVIDERS: Nurse Practitioner; PCP Internal Medicine; Visit Provider Surgery
PROC: 0FT44ZZ Resection of Gallbladder, Percutaneous Endoscopic Approach (ICD-10-PCS; CPT 47562; principal; 2024-03-31 08:50)
DX: K80.00 Calculus of gallbladder with acute cholecystitis without obstruction (principal)
CPT/HCPCS: 47562; 81025; 88304; J1100; J2250; J2704; J2795; J3010

== ENCOUNTER → 2024-03-31 06:49 | Outpatient (BNV) | payer OTHER, SELFPAY | PROVIDERS: PCP Internal Medicine; Visit Provider Surgery | DX: K80.00 Calculus of gallbladder with acute cholecystitis without obstruction (principal) | CPT/HCPCS: 47562 ==

== ENCOUNTER 2024-04-10 12:43 | Outpatient (AMB) | payer OTHER, SELFPAY ==
--- NOTE | 2024-04-10 12:44 | A.OFFVIS_ITS ---
Vital Signs 04/10/24 12:50 Height 5 ft 1 in Weight 298 lb BMI 56.3 BP 130/80 Blood Pressure Location Lt brachial Position Sitting Intake Visit Reasons: S/P lap yanci w/mesh Intake Note: Patient is seen in office for post op assessment post laparoscopic cholecystectomy. 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 She feels well and reports an improvement in her overall abdominal pain. She does still have some incisional pain in the epigastric incision and notes some bruising in the lower abdomen. She has been eating well and denies any nausea or vomiting. [facility] Medical History (Updated 03/31/24 @ 19:06 by Ronald England MD) Retinal detachment Anxiety Obesity Otitis media Surgical History (Updated 04/10/24 @ 12:45 by DAO Mendez) History of laparoscopic cholecystectomy (03/31/24) History of eye surgery Family History Father Diabetes Mother Diabetes Paternal Grandfather Lung cancer Other Mental health disorder Social History Housing: House Comment: COUNTS CORRECT Patient Tobacco Use Status: Never used Tobacco e-Cigarette/Vaping Use: Never Used Second Hand Smoke Exposure: No Current occupational status: employed Current occupational exposures/hazards: No Cognitive needs: No Hearing needs: No Vision needs: Yes Physical Exam Const General: no acute distress Nutritional Appearance: well nourished Orientation/consciousness: patient oriented x3 Resp Effort & Inspection: normal respiratory effort GI Other: Trocar incisions are clean, dry, and intact without redness or discharge. No hernias noted. Neuro General: patient oriented x3 Extrem General: Yes no clubbing, cyanosis or edema Assessment & Plan Assessment & Plan (1) Cholelithiasis: Comment: Laparoscopic cholecystectomy 03/2024 Dr. Remy Code(s): K80.20 - Calculus of gallbladder without cholecystitis without obstruction Category: Medical Qualifiers: Biliary obstruction: without biliary obstruction Cholecystitis acuity: acute Cholecystitis presence: with cholecystitis Cholelithiasis location: gallbladder Qualified Code(s): K80.00 - Calculus of gallbladder with acute cholecystitis without obstruction Plan 29-year-old female patient status post laparoscopic colectomy on 03/31/2024. She tolerated procedure well and her wounds are healing nicely. She should continue to avoid lifting greater than 10 lb for another week and return as needed for problems. I also recommended remaining on a low-fat diet for least 1 month. Coding Level of Care Code Global (34629) Diagnoses Calculus of gallbladder with acute cholecystitis without obstruction K80.00 Biliary obstruction: without biliary obstruction Cholecystitis acuity: acute Cholecystitis presence: with cholecystitis Cholelithiasis location: gallbladder
[2024-04-10 12:50] VITALS: BP 130/80; BMI 56.3
== END 2024-04-10 12:51 | disposition home or self-care (01) ==
PROVIDERS: PCP Internal Medicine; Visit Provider Surgery
DX: K80.00 Calculus of gallbladder with acute cholecystitis without obstruction (principal)
CPT/HCPCS: 99024

== ENCOUNTER → 2024-04-10 12:43 | Outpatient (BNVA) | payer OTHER, SELFPAY | PROVIDERS: PCP Internal Medicine; Visit Provider Surgery ==

== ENCOUNTER 2024-05-19 19:11 | Emergency (ER) | payer OTHER, SELFPAY ==
--- NOTE | ~2024-05-19 | US_ITS ---
EXAMINATION: US VENOUS ULTRASOUND WITH DOPPLER LOWER EXTREMITY, LEFT CLINICAL INFORMATION: Pain COMPARISON: None available. TECHNIQUE: Ultrasound of the deep veins is performed from the hip to the calf with compression sonography and color and pulse Doppler assessment. Spectral analysis with color-flow imaging is performed. FINDINGS: There is normal venous compression and respiratory variation and augmented flow. The visualized common femoral vein, superficial femoral vein, profunda femoral vein, popliteal vein, and the trifurcation region shows no evidence of deep venous thrombosis. There is no significant popliteal fossa cyst. If the patient's symptoms persist, followup ultrasound in 5 days 7 days might be of value to exclude proximal propagation from a non-visualized calf vein. US/US venous duplex LE LT IMPRESSION: No DVT demonstrated in the left lower extremity.
--- NOTE | ~2024-05-19 | XR_ITS ---
EXAMINATION: XR KNEE, LEFT CLINICAL INFORMATION: Knee pain COMPARISON: None available. TECHNIQUE: Four views of the left knee. FINDINGS: No fracture or joint effusion. Alignment is anatomic. Joint spaces are maintained. No abnormal soft tissue calcification. XR/XR knee LT 3V IMPRESSION: Unremarkable plain radiographs of the left knee.
[2024-05-19 19:16] VITALS: BP 183/91; PULSE 104; RESP 18; O2SAT 97; BMI 53.9
--- NOTE | 2024-05-19 21:21 | ED_ITS ---
HPI - Extremity Problem General Chief complaint: Extremity Problem Stated complaint: L leg pain Time Seen by Provider: 05/19/24 19:26 Source: patient Mode of arrival: ambulatory Limitations: no limitations History of Present Illness HPI Narrative: Patient is a 29-year-old female who presents emergency department for evaluation of left lower extremity pain with onset 3 days ago. Started along the lateral aspect of the left knee and proximal tib-fib region with pain in her calf as well. Initially she was able to walk, but it has become progressively worse. Today she reports the pain to be severe, she feels like she can not walk on it or bend the knee. She reports a significant family history of blood clots in both her mother and father side. She denies any notable precipitating injury, numbness or tingling to the lower extremity, any redness or obvious swelling. Denies any chest pain or shortness of breath. Related Data Previous Rx's ?Medication ?Instructions ?Recorded ondansetron HCl 4 mg tablet 4 mg PO Q8H PRN nausea and 03/27/24 vomiting #10 tabs Allergies Allergy/AdvReac Type Severity Reaction Status Date / Time No Known Allergies Allergy Verified 05/19/24 19:19 [No Known Allergies*] Review of Systems Review of Systems: Yes all other systems are reviewed and are negative [facility] Past Medical History Attestation statement: The following information was validated with the patient. Source: old records reviewed Medical History Retinal detachment Anxiety Obesity Otitis media Surgical History History of laparoscopic cholecystectomy (03/31/24) History of eye surgery Family History Family History Father Diabetes Mother Diabetes Paternal Grandfather Lung cancer Other Mental health disorder Social History Social History Housing: House Comment: COUNTS CORRECT Patient Tobacco Use Status: Never used Tobacco Smoked in Last 30 Days: No e-Cigarette/Vaping Use: Never Used Second Hand Smoke Exposure: No Advance Directives: No Advance Directives Information Provided: No Do you have a plan to hurt others: No Plan Patient : No Current occupational status: employed Current occupational exposures/hazards: No Cognitive needs: No Hearing needs: No Vision needs: Yes Physical Exam Vital Signs: Vital Signs: Last Vital Signs Temp 98.3 F 05/19/24 23:26 Pulse 104 H 05/19/24 23:26 Resp 18 05/19/24 23:26 BP 120/84 05/19/24 23:26 Pulse Ox 98 05/19/24 23:26 O2 Del Method Room Air 05/19/24 23:26 BMI result Body Mass Index 53.9 Appearance: Alert.?Oriented to person, place and time. No acute distress.?Normal affect. Neck: Normal inspection.? Neck supple.?? CVS: Heart sounds normal. Normal heart rate and rhythm.? Pulses normal.?? Respiratory: No respiratory distress.? Lung sounds clear to auscultation bilaterally?? Skin: Skin warm and dry.? Normal skin color.? Extremities: No lower extremity edema.? Positive left calf tenderness upon palpation. No erythema or warmth. 2+ DP/PT pulse bilaterally. No laxity on examination of the left knee, no obvious effusion, no obvious deformity. Neuro: Moves all extremities spontaneously. Sensation intact bilaterally. Ambulates with antalgic gait. Medications Administered Discontinued Medications Generic Name Dose Route Start Last Admin Trade Name Freq PRN Reason Stop Dose Admin Ketorolac Tromethamine 30 mg 05/19/24 21:47 05/19/24 21:58 Ketorolac Tromethamine 30 Mg/Ml Vial IM 05/19/24 21:48 30 mg ONCE ONE Administration Medical Decision Making Medical Decision Making [facility] Narrative: Patient is a 29-year-old female who presents emergency department for evaluation of atraumatic left knee pain as per HPI. Overall appears well, nontoxic, afebrile. No respiratory distress. She is afebrile., clinically appears less likely to be acute septic joint. Have a low suspicious for any acute fracture or dislocation given it is atraumatic in nature. She does have calf tenderness, ultrasound to be obtained to exclude DVT/Burgess cyst/superficial thrombophlebitis though on exam does not have superficial findings of such. XR was without acute osseous abnormality, ultrasound without evidence of DVT/Burgess cyst. She does have notable tenderness upon palpation of the lateral knee, distal lateral thigh and proximal lower leg. Discussed the possibility of IT band syndrome, muscular etiology, she does do frequent extensive walking while at work. Pain did improve with Toradol. She was provided with crutches as she feels more stable this helps to alleviate her pain. Advised outpatient follow-up with PCP for persistent symptoms. Discussed worrisome signs and symptoms that would warrant re-evaluation in the emergency department. Differential Diagnosis Differential Diagnoses: The differential diagnosis associated with the presentation includes Admission/Observation Consideration of admission/observation: Escalation of care including admission/observation considered Independent Interpretation I performed an independent interpretation of an: Plain X-Ray (No acute fracture) Radiology Impression Discussion of test interpretation with radiology: I have reviewed the radiologist's reading. Radiologist Impression: XR/XR knee LT 3V IMPRESSION: Unremarkable plain radiographs of the left knee. US/US venous duplex LE LT IMPRESSION: No DVT demonstrated in the left lower extremity. External Record Review External record reviewed: Outpatient record Prescription Management I considered prescription management with: Pain Medication Discharge Plan Discharge Clinical Impression: Acute knee pain Patient Disposition: Home, Self-Care Instructions: Crutch Instructions (ED), How to Use an Elastic Bandage (ED), R.I.C.E. Treatment (ED) Additional Instructions: You can take ibuprofen 200 mg, 3 tablets (600mg) every 6-8 hours as needed for pain, in addition to Tylenol 500 mg, 2 tablets (1,000mg) every 4-6 hours as needed for pain, but not to exceed 3 doses daily (3,000mg).? Use Matthew bandage as instructed. You may use crutches as needed to take weight off of the leg, you can begin to apply weight as tolerated. Please follow-up with your primary care doctor closely for any persistent symptoms. Be sure to rest over the next few days, try to avoid extensive walking, heavy lifting, or running. Prescriptions: No Action ondansetron HCl 4 mg tablet 4 mg PO Q8H PRN (Reason: nausea and vomiting) Qty: 10 0RF Referrals: Ronald England MD [Primary Care Provider] - Interventions: ED Discharge Assessment Last Done: 05/19/24 23:26 Discharge Date/Time: 05/19/24 23:27 Print Language: Indonesian
[2024-05-19 21:44] VITALS: TEMP 36.8
[2024-05-19] MEDS: Ketorolac Tromethamine 30 MG/ML VIAL IM (21:58)
--- NOTE | 2024-05-19 22:20 | PC.NURSE ---
pt medicated per MAR for 3/10 knee pain at rest, 9/10 pain with ambulation. Attempted ambulation trial with pt without the assistance of her cane. Pt attempted to fully bear weight on the effected extremity and reported 9/10 pain.
[2024-05-19 23:26] VITALS: BP 120/84; PULSE 104; RESP 18; TEMP 36.8; O2SAT 98
== END 2024-05-19 23:27 | disposition home or self-care (01) ==
PROVIDERS: Emergency Provider Internal Medicine; PCP Internal Medicine
DX: M25.562 Pain in left knee (principal); R60.0 Localized edema
CPT/HCPCS: 73562; 93971; 96372; 99284; J1885

== ENCOUNTER 2024-06-05 08:34 | Outpatient (AMB) | payer OTHER, SELFPAY ==
--- NOTE | 2024-06-05 09:00 | AM.OFFWIN_ITS ---
Intake Vital Signs 06/05/24 09:02 Height 5 ft 2 in Weight 297 lb BMI 54.3 BP 132/80 Blood Pressure Location Lt brachial Position Sitting Pulse 78 Pulse Source Pulse Oximeter Temp 98.2 F Temp Source Oral Pulse Oximetry (%) 98 Oxygen Delivery Method Room Air Intake Visit Reasons: EP RT eye swelling, discharge Intake Note: pt c/o RT eye swelling and discharge. Started Sunday with pain, swelling yesterday Patient Tobacco Use Status: Never used Tobacco Allergies No Known Allergies [No Known Allergies*] Allergy (Verified 06/05/24 09:01) Do you need a note to return to daycare/school/sports/work: No HPI EP RT eye swelling, discharge HPI Details This note is constructed using voice recognition software. While every effort has been made to ensure accuracy, women's studies professor errors may have been included. The patient is a 29 year old female who presents to the clinic today with right eye swelling and discharge for the last couple of days. She notes that her right eye does not have vision, this is chronic in nature, and not any different of a findings since onset. She started with some mild swelling, then developed yellow crusty discharge, then some itchiness, and then a little more swelling around the eye. She denies significant pain, fever, chills. 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 She is not a contact lens wearer. [facility] Medical History Retinal detachment Anxiety Obesity Otitis media Surgical History History of laparoscopic cholecystectomy (03/31/24) History of eye surgery Family History Father Diabetes Mother Diabetes Paternal Grandfather Lung cancer Other Mental health disorder Social History Housing: House Comment: COUNTS CORRECT Patient Tobacco Use Status: Never used Tobacco e-Cigarette/Vaping Use: Never Used Second Hand Smoke Exposure: No Current occupational status: employed Current occupational exposures/hazards: No Cognitive needs: No Hearing needs: No Vision needs: Yes Review of Systems Const All systems reviewed & are unremarkable except as noted in HPI and below Physical Exam Vital Signs: Last Vital Signs Temp 98.2 F 06/05/24 09:02 Pulse 78 06/05/24 09:02 BP 132/80 06/05/24 09:02 Pulse Ox 98 06/05/24 09:02 Oxygen Delivery Method Room Air 06/05/24 09:02 BMI result Body Mass Index 54.3 Const General: cooperative, healthy appearing, comfortable, no acute distress and alert Orientation/consciousness: patient oriented x3 Limitations: no limitations HEENT Head: Yes normal to inspection and Yes normocephalic Ears: hearing grossly normal bilaterally General nose exam: Normal external nose present Face and sinus: Yes normal facial exam and Yes sinuses nontender Mouth: Normal oral and palatal mucosa present and tongue normal Teeth and gingiva: dentition normal Throat: Yes posterior oropharynx normal Eyes Other: Right eye without pupillary response, which is chronic. Sclera white, yellow crusty discharge from I conjunctiva mildly injected. Edema to upper eyelid on right. Left eye normal appearance. Skin General skin exam: no rashes or lesions noted, elasticity normal and turgor normal Neuro General: patient oriented x3 Psych Appearance: grossly normal Mental Status: mental status grossly normal Speech and movement: Normal speech and movement present Affect: normal affect Assessment & Plan Assessment & Plan (1) Conjunctivitis: Code(s): H10.9 - Unspecified conjunctivitis Qualifiers: Conjunctivitis type: acute Acute conjunctivitis type: bacterial Laterality: right Qualified Code(s): H10.31 - Unspecified acute conjunctivitis, right eye Plan: Erythromycin ointment ordered, it patient to follow up with any worsening or failure to resolve with 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 Plan See above for full details and plan. Medications: New erythromycin 0.5 inches ophthalmic (eye) QID 7 days 3.5 grams 0RF Coding Level of Care Code Est Pt Level 3 (44803) Diagnoses Acute bacterial conjunctivitis of right eye H10.31 Conjunctivitis type: acute Acute conjunctivitis type: bacterial Laterality: right
[2024-06-05 09:02] VITALS: BP 132/80; PULSE 78; TEMP 36.8; O2SAT 98; BMI 54.3
== END 2024-06-05 10:40 | disposition home or self-care (01) ==
PROVIDERS: PCP Internal Medicine; Visit Provider Registered Nurse
DX: H10.31 Unspecified acute conjunctivitis, right eye (principal)
CPT/HCPCS: 99213

== ENCOUNTER 2024-09-12 13:43 | Outpatient (AMB) | payer OTHER, SELFPAY ==
--- NOTE | 2024-09-12 14:00 | A.OFFPC_ITS ---
Vital Signs 09/12/24 14:01 Height 5 ft 2 in Weight 298 lb BMI 54.5 BP 138/70 Blood Pressure Location Lt brachial Position Sitting Pulse 71 Pulse Source Pulse Oximeter Pulse Oximetry (%) 100 Oxygen Delivery Method Room Air Intake Visit Reasons: annual exam Allergies No Known Allergies [No Known Allergies*] Allergy (Verified 09/12/24 14:27) Medication List - Last Reconciled 09/12/24 by Ysabel Fitzgerald PA-C No Known Home Meds Tobacco use date assessed: 09/12/24 Dental Screening Dental Screen Date: 06/07/23 HPI annual exam HPI Details 29-year-old morbidly obese female with a history of allergy problems coming in for annual exam. Last seen by Dr. England May 2023. Patient has been seen by [facility] in [place] and is being treated for toenail fungal infection. She has been evaluated by psych in the past and had a counselor and is not interested in counseling at this time. She does feel like she struggles with ADHD and intermittent anxiety and would like something for as needed anxiety medication. She follows with eye on [facility]. Has an appointment next week with Gynecology. [facility] Medical History Retinal detachment Anxiety Obesity Otitis media Surgical History History of laparoscopic cholecystectomy (03/31/24) History of eye surgery Family History Father Diabetes Mother Diabetes Paternal Grandfather Lung cancer Other Mental health disorder Social History Housing: House Comment: COUNTS CORRECT Patient Tobacco Use Status: Never used Tobacco e-Cigarette/Vaping Use: Never Used Second Hand Smoke Exposure: No Current occupational status: employed Current occupational exposures/hazards: No Cognitive needs: No Hearing needs: No Vision needs: Yes Questionnaire PHQ-9 Over the last 2 weeks, how often have you been bothered by any of the following problems? 1. Little interest or pleasure in doing things: not at all 2. Feeling down, depressed, or hopeless: not at all 3. Trouble falling or staying asleep, or sleeping too much: not at all 4. Feeling tired or having little energy: not at all 5. Poor appetite or overeating: not at all 6. Feeling bad about yourself - or that you are a failure or have let yourself or your family down: not at all 7. Trouble concentrating on things, such as reading the newspaper or watching television: not at all 8. Moving or speaking so slowly that other people could have noticed. Or the opposite - being so fidgety or restless that you have been moving around a lot more than usual: not at all 9. Thoughts that you would be better off or of hurting yourself in some way: not at all Total score: 0 Depression Screening Interpretation: Negative Depression Screening Done: Yes 54711 - PHQ-9 Billing: Yes Source: Developed by Drs. Tyshawn Bojorquez, Apple Johnson, Vu Schwartz and colleagues, with an educational jose from [employer]. Thrive Questionnaire Date Thrive assessed: 09/05/24 I am a: Patient What is your living situation today?: I have a steady place to live Within the past 12 months, did the food you bought not last and you didn't have the money to get more?: Never true Within the past 12 months, did you worry whether your food would run out before you got money to buy more?: Never true Do you have trouble paying for medicines?: No Do you have trouble getting transportation to medical appointments?: No Do you have trouble paying your heating and electricity bill?: No Do you have trouble taking care of your child, family member or friend?: No Do you have trouble with day-to-day activities such as bathing, preparing meals, shopping, managing finances, etc.?: No Are you currently unemployed and looking for a job?: No Are you interested in more education?: No Please select the resources that you would like help with: None Currently or been in a relationship where the following occur: No concerns reported THRIVE Score: 0 AUDIT C Alcohol Use Questionnaire (AUDIT-C) 1. How often do you have a drink containing alcohol?: Never 3. How often do you have six or more drinks on one occasion?: Never Total Score: 0 NAYE-7 AMB Questionnaire NAYE-7 Date NAYE - 7 assessed: 09/12/24 Feeling nervous, anxious, or on edge: 3 = Nearly every day Not being able to stop or control worryin = Nearly every day Worrying too much about different things: 3 = Nearly every day Trouble relaxin = More than half the days Being so restless that it is hard to sit still: 2 = More than half the days Becoming easily annoyed or irritable: 1 = Several days Feeling afraid as if something awful might happen: 3 = Nearly every day Total NAYE-7 score (0-4 normal; 5-9 mild; 10-14 moderate; 15-21 severe): 17 Source: Developed by Drs. Tyshawn Bojorquez, Apple Johnson, Vu Schwartz and colleagues, with an educational jose from [employer]. NAYE-7 Assessment Billing NAYE-7 Assessment Tool: NAYE-7 Assessment 28770 Review of Systems Const Denies body aches, Denies fatigue, Denies fever(s), Denies frequent falls, Denies headache(s) and Denies weakness Eyes Reports no additional complaints and Denies change in vision ENT Denies dysphagia, Denies dizziness, Denies facial pain, Denies headache(s), Denies nasal congestion and Denies odynophagia Card Denies chest pain, Denies syncope, Denies irregular heart rhythm, Denies leg edema, Denies lightheadedness and Denies dyspnea Resp Denies cough and Denies dyspnea GI Denies constipation, Denies dysphagia, Denies dyspepsia, Denies diarrhea, Denies nausea, Denies odynophagia and Denies vomiting Denies urinary frequency, Denies dysuria, Denies urinary hesitancy and Denies urinary urgency Musc Denies back pain and Denies myalgias Skin/Breast Reports system reviewed and no additional complaints, except as documented Neuro Denies dizziness, Denies syncope, Denies frequent falls, Denies headache(s) and Denies weakness Psych Reports no additional complaints Endo Denies fatigue Physical exam (Primary Care) Vital Signs: Last Vital Signs Pulse 71 09/12/24 14:01 BP 138/70 09/12/24 14:01 Pulse Ox 100 09/12/24 14:01 Oxygen Delivery Method Room Air 09/12/24 14:01 BMI result Body Mass Index 54.5 Tobacco/Smoking Status: Tobacco use Status Tobacco use date assessed 09/12/24 09/12/24 14:05 Patient Tobacco Use Status Never used Tobacco 09/12/24 14:05 Tobacco use type 06/05/24 08:32 e-Cigarette/Vaping Use Never Used 09/12/24 14:05 PHQ-9: PHQ-9 Score PHQ-9: Total score 0 09/12/24 14:18 Depression Screening Interpretation: Negative Thrive Assessment: Date of Thrive Assessment Date Thrive assessed 09/05/24 09/12/24 14:05 Currently or been in a relationship where the following occur: No concerns reported Const General: cooperative, healthy appearing, comfortable and no acute distress Orientation/consciousness: patient oriented x3 HENMT Head: Yes normocephalic Ears: hearing grossly normal bilaterally, external ears normal, TM's normal bilaterally and EAC's normal General nose exam: Normal external nose present Face and sinus: Yes normal facial exam and Yes sinuses nontender Mouth: Normal oral and palatal mucosa present and tongue normal Throat: Yes posterior oropharynx normal Eyes General: appearance normal, both eyes and all related structures Conjunctivae: conjunctivae normal Pupils: Equal, round and reactive pupils present EOM: EOMs intact bilaterally and No Nystagmus present Neck Neck: Yes normal visual inspection, Yes full ROM and Yes no lymphadenopathy Chest Chest palpation & inspection: normal inspection of the chest Resp Effort & Inspection: normal respiratory effort Auscultation: clear to auscultation bilaterally, no crackles, no rales, no rhonchi, no wheezes and breath sounds present Cardio Rate: regular rate Rhythm: regular rhythm Peripheral pulses: radial pulses present and dorsalis pedis present GI Inspection: Yes normal to inspection and No Abdominal wall edema Palpation (GI): Soft to palpation, not firm and nontender Auscultation: normal bowel sounds Rectal Exam - Female: deferred General: Yes no CVA tenderness Back/Spine/Pelvis Back: no CVA tenderness Skin General skin exam: no rashes or lesions noted Neuro General: patient oriented x3 Cranial nerves: Yes Equal, round and reactive pupils present, Yes Midline tongue present, Yes Ability to bilaterally elevate shoulders present and No Nystagmus present Gait exam (Neuro): Normal gait present Extrem General: Yes normal to inspection, Yes full ROM, No no pedal edema and No edema Psych Speech and movement: Normal speech and movement present Affect: normal affect Insight: Good insight present (Psych) Judgement: Good judgement present (Psych) Office Procedures Flu Questionnaire Does the patient have a severe egg allergy?: No Does the patient have severe life threatening allergies?: No Does the patient have a fever or illness today?: No Has the patient ever had Guillain-[place] Syndrome?: No Has the patient ever had any past reaction to a flu shot?: No Immunizations Fluarix Triv 6308-2830 (PF) 45 mcg (15 mcg x 3)/0.5 mL IM syringe Performing Provider: Ysabel Fitzgerald PA-C [facility] Administered by: DAO Montesinos on 09/12/24 14:09 Dose Route Admin Location Dispensed Lot Number Expiration Date [place] Sql Database Programmer 0.5 mL IM Left Deltoid 0.5 mL [id number] 04/27/25 [id number] [employer] VIS Given Date VIS Provided VIS Publication Date 09/12/24 Single Vaccine 21 Eligibility Eligibility Date Funding Source Not [facility] Eligible 09/12/24 Private Coding Level of Care Code Est Pt Prev Care 18-39y(48317) Diagnoses ADHD (attention deficit hyperactivity disorder) F90.9 Visual impairment of left eye H54.7 Retinal detachment H33.20 Obesity E66.9 Anxiety F41.9 Annual physical exam Z00.00 Additional Codes NAYE-7 Assessment Billing - NAYE-7 Assessment Tool: NAYE-7 Assessment 66865 ([id number]) PHQ-9 - 01454 - PHQ-9 Billing: Yes ([id number]) Assessment & Plan Assessment & Plan (1) ADHD (attention deficit hyperactivity disorder): Code(s): F90.9 - Attention-deficit hyperactivity disorder, unspecified type Category: Medical Plan: Referral placed to outpatient psych clinic. 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 (5) Anxiety: Code(s): F41.9 - Anxiety disorder, unspecified Category: Medical Plan: We will trial hydroxyzine as needed for anxiety attacks. Declining counselor at this time. (6) Annual physical exam: Code(s): Z00.00 - Encounter for general adult medical examination without abnormal findings Category: Medical Plan This note was constructed using voice recognition software. While every effort has been made to ensure accuracy and public bath attendant, still areas may have been included sometimes these areas may affect the content or meeting of the given symptoms. Total time spent caring for the patient today was 30 minutes. This includes time spent before the visit reviewing the chart, time spent during the visit, and time spent after the visit and documentation. Orders: Orders Free T4 (Free Thyroxine) 09/13/24 E66.9 - Obesity, unspecified Magnesium 09/13/24 E66.9 - Obesity, unspecified Vitamin D 25-OH Total 09/13/24 E66.9 - Obesity, unspecified Influenza 1464-5596 Immunization 09/12/24 Z23 - Encounter for immunization Lipid Panel 09/13/24 E66.9 - Obesity, unspecified, E78.00 - Pure hypercholesterolemia, unspecified Thyroid Stimulating Hormone 09/13/24 E66.9 - Obesity, unspecified Vitamin B12 and Folate 09/13/24 E66.9 - Obesity, unspecified Hemoglobin A1c 09/13/24 Z00.00 - Encounter for general adult medical examination without abnormal findings Referrals Psychiatry Outpatient Consultation Service F90.9 - Attention-deficit hyperactivity disorder, unspecified type Medications: New hydroxyzine HCl 25 mg PO BID PRN 30 tabs 0RF anxiety
[2024-09-12 14:01] VITALS: BP 138/70; PULSE 71; O2SAT 100; BMI 54.5
== END 2024-09-12 14:48 | disposition home or self-care (01) ==
PROVIDERS: PCP Internal Medicine
DX: Z00.00 Encounter for general adult medical examination without abnormal findings (principal); H54.7 Unspecified visual loss; F90.9 Attention-deficit hyperactivity disorder, unspecified type; H33.21 Serous retinal detachment, right eye; E66.9 Obesity, unspecified; F41.9 Anxiety disorder, unspecified

== ENCOUNTER → 2024-09-12 13:43 | Outpatient (BNVA) | payer OTHER, SELFPAY | PROVIDERS: PCP Internal Medicine | DX: Z00.00 Encounter for general adult medical examination without abnormal findings (principal); F90.9 Attention-deficit hyperactivity disorder, unspecified type; H54.7 Unspecified visual loss; H33.20 Serous retinal detachment, unspecified eye; E66.9 Obesity, unspecified; Z68.43 Body mass index [BMI] 50.0-59.9, adult; F41.9 Anxiety disorder, unspecified; Z23 Encounter for immunization | CPT/HCPCS: 90471; 90656; 96127 ==

== ENCOUNTER 2024-09-13 08:39 | Outpatient (REF) | payer OTHER, SELFPAY ==
[2024-09-13 10:22] LABS: Basophils Absolute Auto 0.1 X10*3/uL (0.0-0.2); Basophils Percent Auto 0.9 % (0-2); Eosinophils Absolute Auto 0.1 X10*3/uL (0.0-0.4); Eosinophils Percent Auto 1.2 % (0-4); Hematocrit 44.1 % (37.0-47.0); Hemoglobin 14.9 g/dl (12.0-16.0); Imm Gran Abs Auto 0.03 X10*3/uL (0.00-0.03); Imm Gran Pct Auto 0.4 % (0.0-0.4); Lymphocytes Absolute Auto 1.5 X10*3/uL (1.2-4.9); MANUAL DIFF FLAG SCAN; Mean Corpuscular HGB Conc 33.8 g/dl (31.0-35.0); Mean Corpuscular Hemoglobin 29.2 pg (27.0-33.0); Mean Corpuscular Volume 86.5 fL (80.0-98.0); Monocytes Absolute Auto 0.4 X10*3/uL (0.1-1.2); Monocytes Percent Auto 5.7 % (2-11); Neutrophils Absolute Auto 4.7 x10*3/uL (2.0-8.3); Neutrophils Percent Auto 69.8 % (45-73); PLT CLUMP 1; Red Cell Distribution Width 12.2 % (11.0-16.0); SCAN SMEAR FLAG 1
[2024-09-13 11:04] LABS: Estimated Average Glucose 108 mg/dL; Hemoglobin A1C 135.2294 umol/L; Hemoglobin A1c % 5.4 % (<6.0); Total Hemoglobin (HGBA1C) 3772.0478 umol/L
[2024-09-13 11:17] LABS: Alanine Aminotransferase 23 U/L (0-31); Albumin Level 4.2 g/dL (3.5-5.0); Alkaline Phosphatase 50 U/L (39-117); Anion Gap 14 (12-20); Aspartate Amino Transferase 22 U/L (5-31); Bilirubin Total 0.8 mg/dL (0.0-1.0); Blood Urea Nitrogen 14 mg/dL (9-16); Calcium 9.1 mg/dL (8.4-10.2); Carbon Dioxide 23 mmol/L (22-29); Chloride 105 mmol/L (96-108); Cholesterol 181 mg/dL (<200); Estimated Glomerular Filt Rate > 60; Glucose Random 95 mg/dL (60-115); HDL Cholesterol 51 mg/dL (>40); LDL Cholesterol Calculated 112 mg/dL (<100); Magnesium 2.1 mg/dL (1.6-2.6); Sodium 138 mmol/L (135-145); Total Protein 7.7 g/dL (6.5-8.0); Triglycerides 90 mg/dL (<150); White Blood Count 6.7 X10*3/uL (4.8-10.8)
[2024-09-13 11:41] LABS: Folate 8.7 ng/mL (> or = 4.0); Free T4 (Free Thyroxine) 0.87 ng/dL (0.71-1.85); Thyroid Stimulating Hormone 0.57 uIU/mL (0.32-4.0); Vitamin B12 557 pg/mL (200-900); Vitamin D 25-OH Total 14.5 ng/mL (>30)
[2024-09-13 12:07] LABS: SLIDE REVIEW VERIFIED
== END 2024-09-13 08:40 | disposition home or self-care (01) ==
LOC: HO.LAB 08:39
PROVIDERS: Absent Provider Podiatrist; PCP Internal Medicine
DX: Z00.00 Encounter for general adult medical examination without abnormal findings (principal); E78.00 Pure hypercholesterolemia, unspecified; B35.1 Tinea unguium; E66.9 Obesity, unspecified; Z13.1 Encounter for screening for diabetes mellitus
CPT/HCPCS: 36415; 80053; 80061; 82306; 82607; 82746; 83036; 83735; 84439; 84443; 85025

== ENCOUNTER 2025-07-28 10:03 | Emergency (ER) | payer SELFPAY ==
--- OUTSIDE RECORDS SUMMARY | 2024-09-12 09:20 | XMS_ITS ---
Author Organization [facility] [employer] [facility] Address [address] [facility] [address] [place] [address] Care Team Providers Care Pole Sander Operator Name Role Phone NANO GARCIA M.D. 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 :1995 A ge:29 Y S ex:Female Date:09/12/2024 Address:[address] [place], [place] [id number] Pcp:NANO GARCIA M.D. Subjective: * Chief Complaints: * 1 . 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 * Medical History: Objective: * Vitals: Assessment: Plan: * Treatment: * Images: Billing Information: * Visit Code: * Procedure Codes: * Electronic signature of Martha Kolb MD on 07/28/2025 at 11:49 AM EDT Sign off status: Pending * Appointment Provider: Saul Kolb M.D. Date: 1 11/12/2023 Generated for Liss dunn/Le/Britt on: 0 07/28/2025 11:49 AM EDT
--- OUTSIDE RECORDS SUMMARY | 2024-11-21 08:00 | XMS_ITS ---
Author Organization [facility] Address [address] [place] [phone] Care Team Providers Care Experimental Welder Name Role Phone Ronald England Primary Care Provider Zoe Boyd [phone] Medications Medication SIG (Take, Route, Frequency, Duration) Notes Start Date End Date Status Ciclopirox Olamine 0.77 % 1 application Externally Twice a day to skin of feet including between the toes; Duration: 30 days Active LamISIL 250 MG 1 tablet Orally Once a day; Duration: 30 days Active Encounters Encounter Location Date Provider Diagnosis [address] [address] 11/21/2024 Zoe Arrington Plan Of Treatment No Information Progress Notes * Chintan SMITHOB:1995 ([age] yo F)Acc No.[id number]:11/21/2024 Progress Note Patient: Vitor YIPn Provider: Graciela Arrington DPM :1995 A ge:29 Y S ex:Female Date:11/21/2024 Address:[address] [place] [address] [id number] Pcp:Ronald England Subjective: * Chief Complaints: * [...] 0 11/21/2024 Generated for Liss dunn/Le/Britt on: 0 07/28/2025 11:49 AM EDT
--- OUTSIDE RECORDS SUMMARY | 2025-01-16 08:30 | XMS_ITS ---
Author Organization [facility] Address [address] [place] [phone] Care Team Providers Care Gemologist Name Role Phone Ronald England Primary Care Provider Zoe Boyd [phone] Medications Medication SIG (Take, Route, Frequency, Duration) Notes Start Date End Date Status Ciclopirox Olamine 0.77 % 1 application Externally Twice a day to skin of feet including between the toes; Duration: 30 days Active LamISIL 250 MG 1 tablet Orally Once a day; Duration: 30 days Active Encounters Encounter Location Date Provider Diagnosis [address] [address] 01/16/2025 Zoe Arrington Plan Of Treatment No Information Progress Notes * Chintan SMITHOB:1995 ([age] yo F)Acc No.[id number]:01/16/2025 Progress Note Patient: Vitor YIPn Provider: Graciela Arrington DPM :1995 A ge:29 Y S ex:Female Date:01/16/2025 Address:[address] [place] [address] [id number] Pcp:Ronald England Subjective: * Chief Complaints: * [...] 0 01/16/2025 Generated for Liss dunn/Le/Britt on: 0 07/28/2025 11:49 AM EDT
--- NOTE | 2025-07-28 10:11 | ECG_ITS ---
Test Reason : CHEST PAIN Blood Pressure : */* mmHG Vent. Rate : 115 BPM Atrial Rate : 115 BPM P-R Int : 142 ms QRS Dur : 88 ms QT Int : 324 ms P-R-T Axes : 54 18 -1 degrees QTcB Int : 448 ms Sinus tachycardia Minimal voltage criteria for LVH, may be normal variant ( R in aVL ) Nonspecific T wave abnormality Abnormal ECG No previous ECGs available Referred By: Generic ED Physician Electronically Signed By: KORTNEY LAGUNA
[2025-07-28 10:25] VITALS: BP 181/87; PULSE 107; RESP 18; TEMP 36.4; O2SAT 100; BMI 59.2
--- NOTE | 2025-07-28 10:30 | ED.ARRPALP ---
HPI - Arrhythmia/Palpitations General Chief Complaint: Arrhythmia/Palpitations Stated Complaint: Heart palpitations Time Seen by Provider: 07/28/25 10:42 History of Present Illness ED Provider: Marquez Carey MD HPI narrative: 30-year-old female who complains of brief irregular palpitations with ?extra beat or abnormal beat ?. Patient is awake alert comfortable on arrival asymptomatic now. Denies history of DVT PE or any subjective leg swelling. No recent travel. No exogenous hormone. 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 Described it as a extra or regular sudden beat the felt abnormal to her. Related Data Previous Rx's ?Medication ?Instructions ?Recorded hydroxyzine HCl 25 mg tablet 25 mg PO BID PRN anxiety #30 tabs 09/12/24 metoprolol tartrate 25 mg tablet 12.5 mg (1/2 x 25 mg) PO BID 30 07/28/25 days #30 tabs Allergies Allergy/AdvReac Type Severity Reaction Status Date / Time No Known Allergies (No Known Allergy Verified 07/28/25 10:28 Allergies*) FORMERLY [facility], [facility] Past Medical History Medical History Retinal detachment Anxiety Obesity Otitis media Surgical History History of laparoscopic cholecystectomy (03/31/24) History of eye surgery Family History Family History Father Diabetes Mother Diabetes Paternal Grandfather Lung cancer Other Mental health disorder Social History Social History Housing: House Comment: COUNTS CORRECT Patient Tobacco Use Status: Never used Tobacco e-Cigarette/Vaping Use: Never Used Second Hand Smoke Exposure: No Advance Directives: No Advance Directives Information Provided: Yes Current occupational status: employed Current occupational exposures/hazards: No Cognitive needs: No Hearing needs: No Vision needs: Yes Physical Exam Exam: Exam: EXAM: Gen: Alert, awake, well appearing, well hydrated. Head: Atraumatic Eyes: Anicteric, Normal conjunctiva. ENT: Moist mucosa, no pallor. ? Neck: Supple. Skin: ?No observable rash or bruising on exposed or examined skin Respiratory: Breathing comfortably, No distress.Clear to auscultation bilaterally, symmetric chest expansion, No wheeze, rales, ronchi. Cardiovascular: Regular rate and rhythm. No murmurs or rub. Well perfused periphery, warm extremities. No edema. ? Abdominal: No focal tenderness. Soft, no objective distension. No palpable masses or obvious organomegaly. ?No guarding, no rebound tenderness or other peritoneal findings. : No flank tenderness. Neuro: Alert. Gross movement of all extremities intact. ? Psych: Calm. Cooperative. MSK: No grossly visible deformity. Vital signs: See flowsheet Vital Signs: Vital Signs: Last Vital Signs Temp 98.4 F 07/28/25 12:47 Pulse 85 07/28/25 12:47 Resp 18 07/28/25 12:47 BP 154/90 H 07/28/25 12:47 Pulse Ox 99 07/28/25 12:47 O2 Del Method Room Air 07/28/25 12:47 BMI result Body Mass Index 59.2 Course Course Course Narrative: This is an RME: Additional HPI, ROS, PE not included below will be deferred to primary provider. RME assessment and note performed by: Jen Ortega PA-C This is a 30-year-old female, with no known medical problems, who presents emergency department with concerns of palpitations. Patient states history of atrial fibrillation as well as thyroid disease. Pt tachycardic in triage. Plan: Labs, EKG Medications Administered Discontinued Medications Generic Name Dose Route Start Last Admin Trade Name Freq PRN Reason Stop Dose Admin Magnesium Oxide 400 mg 07/28/25 11:46 07/28/25 12:26 Magnesium Oxide 400 Mg Tablet PO 07/28/25 11:47 400 mg ONCE ONE Administration Potassium Chloride 40 meq 07/28/25 11:46 07/28/25 12:26 Potassium Chloride Packet 20 Meq Packet PO 07/28/25 11:47 40 meq ONCE ONE Administration Medical Decision Making Medical Decision Making MDM Narrative: Medical Decision Makin-year-old female with obesity no medical history no medications or toxic habits with brief irregular palpitations acute on chronic. She has had it before but today more persistent at about 09:20 no exertion. No denies any chest pain. There was a maternal history of PE in the setting of COVID the patient has no personal history of DVT or PE or any known diagnosed coagulopathy or hypercoagulable state. History sounds most suggestive of PAC or PVC not present on 12 lead ECG we will monitor on telemetry. Check thyroid electrolytes Patient looks euvolemic. Mildly tachycardic on arrival but when I evaluate her heart rate 85 After approximately 20-30 minutes on telemetry we notice frequent premature beats mostly appearing like premature ventricular beats with the appropriate pause likely this symptomatic cause of palpitations. We will offer beta-sumit but defer outpatient Holter monitoring and additional treatment to cardiology and/or PCP Preliminary Favored Differential Diagnosis: PAC, PVC, transient AFib or other atrial tachydysrhythmia among additional considered etiologies Testing Interpreted Independently: ?See below for details Radiology or Lab testing Results Reviewed: ?See below for details Consults: ?See below for details Independent Historians/External Chart Reviews: ?See below for details Social Determinants of Health Impacting MDM/Planning: ?See below for details Lab Data MDM Lab Attestation statement: I reviewed the patient's lab results. 07/28/25 11:12 07/28/25 11:12 Labs: Lab Results 07/28/25 Range/Units 11:12 WBC 8.2 (4.8-10.8) X10*3/uL RBC 5.23 (4.20-5.50) X10*6/uL Hgb 15.1 (12.0-16.0) g/dl Hct 44.6 (37.0-47.0) % MCV 85.3 (80.0-98.0) fL MCH 28.9 (27.0-33.0) pg MCHC 33.9 (31.0-35.0) g/dl RDW 12.2 (11.0-16.0) % Plt Count 345 (160-400) X10*3/uL MPV 8.8 L (9.4-12.3) fL Immature Gran % (Auto) 0.4 (0.0-0.4) % Neut % (Auto) 78.8 H (45-73) % Lymph % (Auto) 14.7 L (20-40) % Kittson % (Auto) 5.1 (2-11) % Eos % (Auto) 0.4 (0-4) % Baso % (Auto) 0.6 (0-2) % Lymph # (Auto) 1.2 (1.2-4.9) X10*3/uL Kittson # (Auto) 0.4 (0.1-1.2) X10*3/uL Eos # (Auto) 0.0 (0.0-0.4) X10*3/uL Baso # (Auto) 0.1 (0.0-0.2) X10*3/uL Abs Immat Gran (auto) 0.03 (0.00-0.03) X10*3/uL Absolute Neuts (auto) 6.5 (2.0-8.3) x10*3/uL Absolute Nucleated RBC 0.000 (0.0-0.012) X10*3/uL Nucleated RBC % (auto) 0.0 (0.0-0.2) /100WBC Sodium 137 (135-145) mmol/L Potassium 3.8 (3.3-5.1) mmol/L Chloride 103 (96-108) mmol/L Carbon Dioxide 25 (22-29) mmol/L Anion Gap 13 (12-20) BUN 12 (9-16) mg/dL Creatinine 0.97 (0.5-1.4) mg/dL Estim Creat Clear Calc 116.6 Estimated GFR > 60 Random Glucose 156 H (60-115) mg/dL Calcium 9.4 (8.4-10.2) mg/dL Magnesium 1.9 (1.6-2.6) mg/dL Total Bilirubin 0.5 (0.0-1.0) mg/dL Direct Bilirubin 0.2 (0.0-0.5) mg/dL AST 26 (5-31) U/L ALT 41 H (0-31) U/L Alkaline Phosphatase 55 (39-117) U/L Troponin I High Sens < 2.7 (<3.5-17.0) ng/L Total Protein 7.9 (6.5-8.0) g/dL Albumin 4.7 (3.5-5.0) g/dL TSH 0.68 (0.32-4.0) uIU/mL Beta HCG, Quant < 2 mIU/mL Independent Interpretation I performed an independent interpretation of an: EKG (Sinus rhythm LVH no acute ischemic changes tachycardic) and Rhythm Strip (PVC versus Pac) Interpretation: Rhythm strip: Discharge Plan Discharge Clinical Impression: Contraction, premature ventricular Patient Disposition: Home, Self-Care Instructions: Premature Ventricular Contractions (ED) Additional Instructions: DISCHARGE DIAGNOSES: Premature ventricular contractions/palpitation HISTORY OF PRESENTATION: ?Palpitations irregular EMERGENCY DEPARTMENT COURSE,TESTS, TREATMENTS: While in the ED today your lab work was generally reassuring although not out of the normal range your potassium and magnesium were lower than desired in the setting of premature ventricular contractions so we repleted those you will have to have them repeated in 1 week. We noticed on monitoring your heart on the crozer operator that you had frequent premature ventricular contractions DISCHARGE MEDICATIONS: ?Beta-sumit daily FOLLOW-UP: ?Call your primary or general physician soon as possible to discuss your symptoms, your ED visit and to discuss follow up plans Call your primary doctor or our cardiology group for follow up INSTRUCTIONS ?& RETURN PRECAUTIONS: If any symptoms change first call your primary physician, if it is after-hours your primary doctors office should have a provider transitional care manager you can speak with. If the symptoms are severe or very concerning to you then call 911 or return to the ED. Avoid caffeine stimulants. Try to sleep well and hydrate yourself Marquez Carey MD Emergency Physician [facility] Prescriptions: New metoprolol tartrate 25 mg tablet 12.5 mg PO BID 30 Days Qty: 30 0RF No Action hydroxyzine HCl 25 mg tablet 25 mg PO BID PRN (Reason: anxiety) Qty: 30 0RF Interventions: ED Discharge Assessment Last Done: 07/28/25 12:47 Discharge Date/Time: 07/28/25 12:47 Print Language: Khmer
[2025-07-28 11:16] LABS: MANUAL DIFF FLAG NO
[2025-07-28 11:24] LABS: Hematocrit 44.6 % (37.0-47.0); Hemoglobin 15.1 g/dl (12.0-16.0); Imm Gran Abs Auto 0.03 X10*3/uL (0.00-0.03); Imm Gran Pct Auto 0.4 % (0.0-0.4); Lymphocytes Absolute Auto 1.2 X10*3/uL (1.2-4.9); Mean Corpuscular HGB Conc 33.9 g/dl (31.0-35.0); Mean Corpuscular Hemoglobin 28.9 pg (27.0-33.0); Mean Corpuscular Volume 85.3 fL (80.0-98.0); NRBC Abs Auto 0.000 X10*3/uL (0.0-0.012); NRBC Pct Auto 0.0 /100WBC (0.0-0.2); Platelet Count 345 X10*3/uL (160-400); Red Blood Count 5.23 X10*6/uL (4.20-5.50); White Blood Count 8.2 X10*3/uL (4.8-10.8)
[2025-07-28 11:42] LABS: Alanine Aminotransferase 41 U/L (0-31); Albumin Level 4.7 g/dL (3.5-5.0); Alkaline Phosphatase 55 U/L (39-117); Anion Gap 13 (12-20); Aspartate Amino Transferase 26 U/L (5-31); Blood Urea Nitrogen 12 mg/dL (9-16); Calcium 9.4 mg/dL (8.4-10.2); Carbon Dioxide 25 mmol/L (22-29); Chloride 103 mmol/L (96-108); Creatinine Clr Calc Pharmacy 116.6; Estimated Glomerular Filt Rate > 60; Magnesium 1.9 mg/dL (1.6-2.6); Potassium 3.8 mmol/L (3.3-5.1); Sodium 137 mmol/L (135-145); Total Protein 7.9 g/dL (6.5-8.0)
--- OUTSIDE RECORDS SUMMARY | 2025-07-28 11:50 | XMS_ITS | Patient Health Record ---
Author Organization [facility] Address [address] [place] [address] Care Team Providers Care Scaffold Setter Name Role Phone Ronald England Primary Care Provider Zoe Boyd Unavailable [phone] Allergies No Known Allergies Reason For Referral No Information Medications Medication SIG (Take, Route, Frequency, Duration) Notes Start Date End Date Status Ciclopirox Olamine 0.77 % 1 application Externally Twice a day to skin of feet including between the toes; Duration: 30 days Active LamISIL 250 MG 1 tablet Orally Once a day; Duration: 30 days Active Social History Tobacco Use: Social History Observation Description Date Details (start date - stop date) Never Smoker NA - NA Tobacco Use/Smoking Question Answer Notes Are you a: nonsmoker Additional Findings: Tobacco Non-User Current no n-smoker Alcohol Screen Question Answer Notes Did you have a drink containing alcohol in the p ast year? No Points 0 Interpretation Negative Tobacco use other than smoking: Question Answer Notes Are you an other tobacco user? No Vital Signs Height 5 ft 1 in in 09/12/2024 Weight 295 lbs lbs 09/12/2024 BMI 55.73 kg/m2 09/12/2024 Encounters Encounter Location Date Provider Diagnosis [address] [address] 09/12/2024 Zoe Arrington Pain in right toe(s) M79.674 ; Onychomycosis B35.1 ; Pain in left toe(s) M79.675 and Tinea pedis of both feet B35.[address] [place] [address] 09/15/2024 [facility] [place] [address] [place] [address] 11/20/2024 [facility] [place] [address] [facility] [address] [place] [address] 01/16/2025 Zoe Nino Assessments Encounter Date Diagnosis (ICD Code) Assessment Notes Treatment Notes Treatment Clinical Notes Section Notes 09/12/2024 Pain in right toe(s) (ICD-10 - M79.674) 09/12/2024 Onychomycosis (ICD-10 - B35.1) 09/12/2024 Pain in left toe(s) (ICD-10 - M79.675) 09/12/2024 Tinea pedis of both feet (ICD-10 - B35.3) Plan Of Treatment Pending Test Test Name Order Date *Liver Function Test (LFT) 09/12/2024 Insurance Providers Payer Name Payer Address Payer Phone Subscriber Number Group Number Insured Name Patient Relationship to Insured Coverage Start Date Coverage End Date [employer] Benefits [address] [address] [place] [address] [id number] Claudette King Self - patient is the insured Medical (General) History Medical History History ICD Code Anxiety Depression Transfusions Surgical History Surgery Date(Month/Year) eye surgery 1996 Gall bladder removal 03/31/2024
--- OUTSIDE RECORDS SUMMARY | 2025-07-28 11:50 | XMS_ITS | Patient Health Record ---
Author Organization [employer] [facility] Address [address] [place] [address] Care Team Providers Care Ticket Sales Supervisor Name Role Phone NANO GARCIA M.D. Primary Care Provider Es Sheppard Unavailable [phone] Allergies No Known Allergies Results Component Value Reference Range Notes [id number] IGP rfx No Cultur e Under 30 Reviewed date:09/29/2024 02:50:23 PM Interpretation: Performing Lab:[facility], [address], [address], [place], Phone - [phone], Director - [facility] Notes/Report: Clinical Information:Vaginal/Cervical, LMP: [id number] LMP / Prev Treat...[id number]=[id number] Dates / Results....First Pap Today No. of containers..01 ThinPrep Vial DIAGNOSIS: NEGATIVE FOR IN TRAEPITHELIAL LESION OR MALIGNANCY. Specimen adequacy: Satisfact ory for evaluation. No endocervical component is identified. Clinician provided ICD10: Z0 1.419 Performed by: Chacorta sun Production Support Engineer (ASCP) . . Note: The Pap smear is a screening test designed to aid in the detection of premalignant and malignant conditions of the uterine cervix. It is not a diagnostic procedure and should not be used as the sole means of detecting cervical cancer. Both false-positive and false-negative reports do occur. . Test Methodology: This liquid based ThinPrep(R) pap test was screened with the use of an image guided system. . The HPV DNA reflex criteria were not met with this specimen result therefore, no HPV testing was performed. . PDF Report Reviewed date:09/29/2024 02:50:06 PM Interpretation: Performing Lab:[facility], [address], [address], [place], Phone - [phone], [facility] Notes/Report: Clinical Information:Vaginal/Cervical, LMP: [id number] LMP / Prev Treat...[id number]=[id number] Dates / Results....First Pap Today No. of containers..01 ThinPrep Vial Reason For Referral No Information Medications Medication SIG (Take, Route, Fr equency, Duration) Notes Start Date End Date Status Terbinafine HCl 250 MG Oral; Duration: 30 Days Active hydrOXYzine HCl 25 MG TAKE 1 TABLET BY M OUTH TWICE DAILY NEEDED FOR ANXIETY Oral; Duration: 15 Days Active Social History Tobacco Use: Social History Observation Description Date Details (start date - stop date) Never Smoker NA - NA Sexual History Question Answer Notes Had sex in the past 12 months (vaginal, oral, or anal)? No AUDIT-C (Standard) Question Answer Notes Did you have a drink containing alcohol in the p ast year? No Points 0 Interpretation Negative Tobacco Control (Standard) Question Answer Notes Tobacco use: Nonsmoker Problems Problem Type SNOMED Code ICD Code Onset Dates Problem Status W/U Status Risk Notes Problem Morbid obesity (disorder) (762714793) Morbid (severe) obesity due to excess calories (E66.01) Active confirmed Problem Anxiety disorder (773740190) Anxiety disorder, unspecified (F41.9) Active confirmed Vital Signs Temperature 97.7 degrees Fahrenheit 09/19/2024 Blood pressure diastolic 84 mm Hg 09/19/2024 Height 61 in 09/19/2024 Blood pressure systolic 134 mm Hg 09/19/2024 Weight 300 lbs 09/19/2024 BMI 56.68 kg/m2 09/19/2024 Encounters Encounter Location Date Provider Diagnosis [facility] [address] [place] [address] 09/19/2024 Es Kolb Encounter for surveillance of contraceptives, unspecified Z30.40 ; Encounter for gynecological examination (general) (routine) without abnormal findings Z01.419 ; Other specified counseling Z71.89 and Morbid (severe) obesity due to excess calories E66.01 Assessments Encounter Date Diagnosis (ICD Code) Assessment Notes Treatment Notes Treatment Clinical Notes Section Notes 09/19/2024 Encounter for surveillance of contraceptives, unspecified (ICD-10 - Z30.40) SHAHEEN IS NOT SEXUALLY ACTIVE AND DOES NOT NEED CONTRACEPTION AT THE PRESENT TIME. No Urine, Unable to VOID 09/19/2024 Other specified counseling (ICD-10 - Z71.89) SAFE SEX AND CAREFUL PARTNER SELECTION WERE DISCUSSED. No Urine, Unable to VOID 09/19/2024 Encounter for gynecological examination (general) (routine) without abnormal findings (ICD-10 - Z01.419) PAP TEST WAS OBTAINED. No Urine, Unable to VOID 09/19/2024 Morbid (severe) obesity due to excess calories (ICD-10 - E66.01) SHAHEEN IS MORBIDLY OBESE AND WE DISCUSSED THE NEGATIVE EFFECTS OF OBESITY ON HER HEALTH. RECOMMENDED SHE JOIN A WEIGHT LOSS PROGRAM OR DISCUSS USING SEMIGLUTIDE FOR WEIGHT LOSS WITH HER PCP. No Urine, Unable to VOID Plan Of Treatment Next Appt Details Provider Name:Es Graciela rey, 10/02/2025 10:00:00 AM, [address], [address], [place], [address], Insurance Providers Payer Name Payer Address Payer Phone Subscriber Number Group Number Insured Name Patient Relationship to Insured Coverage Start Date Coverage End Date [employer] [place] [address] [address] [place] [address] [id number] MAGDALENE SMITH Self - patient is the insured Medical (General) History Medical History History ICD Code Anxiety disorder, unspecified F41.9 Surgical History Surgery Date(Month/Year) Cholecystectomy 03/31/24 Eye Surgery 1996 Hospitalization History Reason Date(Month/Year) See Surgical Hx
[2025-07-28 11:54] LABS: Troponin-I High Sensitivity < 2.7 ng/L (<3.5-17.0)
[2025-07-28] MEDS: Potassium Chloride Packet 20 MEQ PACKET 40 MEQ PO (12:26)
[2025-07-28 12:47] VITALS: BP 154/90; PULSE 85; RESP 18; TEMP 36.9; O2SAT 99
== END 2025-07-28 12:47 | disposition home or self-care (01) ==
PROVIDERS: Physician Assistant Medical; Emergency Provider Emergency Medicine; PCP Internal Medicine
DX: R00.2 Palpitations (principal); I49.3 Ventricular premature depolarization; R00.0 Tachycardia, unspecified; R07.9 Chest pain, unspecified; R94.31 Abnormal electrocardiogram [ECG] [EKG]
CPT/HCPCS: 36415; 80048; 80076; 83735; 84443; 84484; 84702; 85025; 93005; 99283

== ENCOUNTER → 2025-07-28 10:11 | Outpatient (BNV) | payer SELFPAY | PROVIDERS: Emergency Provider Emergency Medicine; PCP Internal Medicine; Visit Provider Internal Medicine | DX: R00.0 Tachycardia, unspecified (principal) | CPT/HCPCS: 93010 ==

== ENCOUNTER 2025-08-14 08:15 | Outpatient (AMB) | payer OTHER, SELFPAY ==
--- NOTE | 2025-08-14 08:31 | A.OFFPC_ITS ---
Vital Signs 08/14/25 08:32 Height 5 ft 1 in Weight 314 lb 4 oz BMI 59.4 BP 132/90 H Blood Pressure Location Lt brachial Position Sitting Pulse 95 Pulse Source Pulse Oximeter Temp 97.1 F Temp Source Temporal Artery Scan Pulse Oximetry (%) 96 Oxygen Delivery Method Room Air Intake Visit Reasons: [facility] 07/28 Intake Note: Patient is here to follow-up after a visit the emergency department at [facility] on 07/28/25 Acid Adjuster Required: No Keg Inspector: Not Required per policy Accompanied by: Self / Same As Patient Allergies No Known Allergies (No Known Allergies*) Allergy (Verified 08/14/25 08:32) Medication List - Last Reconciled 08/14/25 by Kavitha Reyez NP hydroxyzine HCl 25 mg PO BID PRN metoprolol tartrate 12.5 mg (1/2 x 25 mg) PO BID 30 days Tobacco use date assessed: 08/14/25 Dental Screening Dental Screen Date: 08/14/25 Did you have a dental visit in the last 12 months?: Yes Did you have a dental problem in the last 6 months where you did not have access to dental care?: No Was dental information given to patient?: Patient has dentist HPI HPI Comments History of Present Illness Details 30 y/o Female patient who presents to doctors hospital clinic today for EDF. Pt was admitted at [facility] on 07/28 for an evaluation and treatment of PVCs. She was prescribed Metoprolol 25 mg (takes 1/2 tab) BID. She does have an appointment with [facility] Cardiology for 09/04/25. No concerns today. [facility] Medical History Retinal detachment Anxiety Obesity Otitis media Surgical History History of laparoscopic cholecystectomy (03/31/24) History of eye surgery Family History Father Diabetes Mother Diabetes Paternal Grandfather Lung cancer Other Mental health disorder Social History (Updated 08/14/25 @ 08:35 by DAO White) Housing: House Alcohol intake: never Comment: COUNTS CORRECT Patient Tobacco Use Status: Never used Tobacco e-Cigarette/Vaping Use: Never Used Second Hand Smoke Exposure: No service: No Current occupational status: employed Current occupational exposures/hazards: No Cognitive needs: No Hearing needs: No Vision needs: Yes Questionnaire PHQ-9 Over the last 2 weeks, how often have you been bothered by any of the following problems? 1. Little interest or pleasure in doing things: not at all 2. Feeling down, depressed, or hopeless: not at all 3. Trouble falling or staying asleep, or sleeping too much: not at all 4. Feeling tired or having little energy: not at all 5. Poor appetite or overeating: not at all 6. Feeling bad about yourself - or that you are a failure or have let yourself or your family down: not at all 7. Trouble concentrating on things, such as reading the newspaper or watching television: not at all 8. Moving or speaking so slowly that other people could have noticed. Or the opposite - being so fidgety or restless that you have been moving around a lot more than usual: not at all 9. Thoughts that you would be better off or of hurting yourself in some way: not at all Total score: 0 Depression Screening Interpretation: Negative Depression Screening Done: Yes Source: Developed by Drs. Tyshawn Bojorquez, Apple Johnson, Vu Schwartz and colleagues, with an educational jose from [employer]. Thrive Questionnaire Date Thrive assessed: 08/12/25 I am a: Patient What is your living situation today?: I have a steady place to live Within the past 12 months, did the food you bought not last and you didn't have the money to get more?: Never true Within the past 12 months, did you worry whether your food would run out before you got money to buy more?: Never true Do you have trouble paying for medicines?: No Do you have trouble getting transportation to medical appointments?: No Do you have trouble paying your heating and electricity bill?: No Do you have trouble taking care of your child, family member or friend?: No Do you have trouble with day-to-day activities such as bathing, preparing meals, shopping, managing finances, etc.?: No Are you currently unemployed and looking for a job?: No Are you interested in more education?: No Please select the resources that you would like help with: None Currently or been in a relationship where the following occur: No concerns reported THRIVE Score: 0 AUDIT C Alcohol Use Questionnaire (AUDIT-C) 1. How often do you have a drink containing alcohol?: Monthly or less 2. How many drinks containing alcohol do you have on a typical day when you are drinking?: 1 or 2 3. How often do you have six or more drinks on one occasion?: Never Total Score: 1 NAYE-7 AMB Questionnaire NAYE-7 Date NAYE - 7 assessed: 08/14/25 Feeling nervous, anxious, or on edge: 2 = More than half the days Not being able to stop or control worryin = More than half the days Worrying too much about different things: 0 = Not at all Trouble relaxin = Several days Being so restless that it is hard to sit still: 0 = Not at all Becoming easily annoyed or irritable: 1 = Several days Feeling afraid as if something awful might happen: 3 = Nearly every day Total NAYE-7 score (0-4 normal; 5-9 mild; 10-14 moderate; 15-21 severe): 9 Source: Developed by Drs. Tyshawn Bojorquez, Apple Johnson, Vu Schwartz and colleagues, with an educational jose from [employer]. Review of Systems Const All systems reviewed & are unremarkable except as noted in HPI and below Physical exam (Primary Care) Vital Signs: Last Vital Signs Temp 97.1 F 08/14/25 08:32 Pulse 95 08/14/25 08:32 BP 132/90 H 08/14/25 08:32 Pulse Ox 96 08/14/25 08:32 Oxygen Delivery Method Room Air 08/14/25 08:32 BMI result Body Mass Index 59.4 Tobacco/Smoking Status: Tobacco use Status Tobacco use date assessed 08/14/25 08/14/25 08:36 Patient Tobacco Use Status Never used Tobacco 08/14/25 08:36 Tobacco use type 06/05/24 08:32 e-Cigarette/Vaping Use Never Used 08/14/25 08:36 PHQ-9: PHQ-9 Score PHQ-9: Total score 0 08/14/25 08:36 Depression Screening Interpretation: Negative Thrive Assessment: Date of Thrive Assessment Date Thrive assessed 08/12/25 08/14/25 08:36 Currently or been in a relationship where the following occur: No concerns reported Const General: cooperative and no acute distress Nutritional Appearance: obese Orientation/consciousness: patient oriented x3 Resp Effort & Inspection: normal respiratory effort Auscultation: clear to auscultation bilaterally Cardio Heart sounds: S1 normal heart sound present and S2 normal heart sound present Neuro General: patient oriented x3, gait normal and moves all extremities Psych Speech and movement: Normal speech and movement present Coding Level of Care Code Est Pt Level 4 (23157) Diagnoses Contraction, premature ventricular I49.3 Time Spent (min) 20 Assessment & Plan Assessment & Plan (1) Contraction, premature ventricular: Code(s): I49.3 - Ventricular premature depolarization Category: Medical Plan: F/U with Cardiology as scheduled. Continue of Metoprolol as prescribed. Medications: Refilled metoprolol tartrate 12.5 mg (1/2 x 25 mg) PO BID 30 tabs 0RF 30 days I49.3 - Ventricular premature depolarization
[2025-08-14 08:32] VITALS: BP 132/90; PULSE 95; TEMP 36.2; O2SAT 96; BMI 59.4
== END 2025-08-14 08:51 | disposition home or self-care (01) ==
LOC: HO.HMCH 08:16
PROVIDERS: PCP Internal Medicine; Visit Provider Nurse Practitioner Family
DX: I49.3 Ventricular premature depolarization (principal)

== ENCOUNTER 2025-09-04 14:46 | Outpatient (AMB) | payer OTHER, SELFPAY ==
[2025-09-04 14:58] VITALS: BP 130/68; PULSE 90
--- NOTE | 2025-09-04 14:58 | A.OFFVIS_ITS ---
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 Moving forward, patient will be under Dr. Mondragon's care as he is the rounding aerospace control and warning systems this week. Patient states that end of June, patient started having some palpitations which were intermittent however knowing that she was getting palpitations, her heart rate would get elevated as she was getting anxious and so she came into the emergency room. Patient was noted to have occasional PVCs and was started on metoprolol 12.5 b.i.d.. Today, patient states that her palpitations have improved however she is still having them. Patient is denying any exertional chest pain, shortness of breath, dizziness, orthopnea, PND, leg edema, presyncope or syncope. Patient does note that she has a strong family history of AFib. [facility] Medical History Retinal detachment Anxiety Obesity Otitis media Surgical History History of laparoscopic cholecystectomy (03/31/24) History of eye surgery Family History Father Diabetes Arrhythmia History of high blood pressure Mother Diabetes History of high blood pressure Heart problem Paternal Grandfather Lung cancer Heart problem Other Mental health disorder Social History Housing: House Alcohol intake: current Alcohol intake frequency: holidays/special occasions only Comment: COUNTS CORRECT Patient Tobacco Use Status: Never used Tobacco e-Cigarette/Vaping Use: Never Used Second Hand Smoke Exposure: No service: No Current occupational status: employed Current occupational exposures/hazards: No Cognitive needs: No Hearing needs: No Vision needs: Yes Review of Systems Const Denies daytime sleepiness, Denies difficulty sleeping, Denies snoring, Denies stops breathing during sleep and Denies weakness Card Denies chest pain, Denies rapid heart rate, Denies irregular heart rhythm, Denies claudication, Denies leg edema, Denies lightheadedness, Reports palpitations, Denies dyspnea, Denies dyspnea on exertion, Denies orthopnea, Denies paroxysmal nocturnal dyspnea and Denies slow heart rate Resp Denies cough, Denies dyspnea, Denies dyspnea on exertion and Denies snoring GI Reports no additional complaints, Denies hematochezia, Denies change in stool ch aracter and Denies dyspepsia Musc Denies abnormal gait, Denies muscle weakness and Denies numbness Neuro Denies abnormal gait, Denies numbness and Denies weakness Endo Reports palpitations Physical Exam Vital Signs: Last Vital Signs Pulse 90 09/04/25 14:58 BP 130/68 09/04/25 14:58 Const General: cooperative, healthy appearing, comfortable and no acute distress Orientation/consciousness: patient oriented x3 HEENT Head: Yes normal to inspection Neck Neck: Yes normal visual inspection, Yes trachea midline and Yes supple Chest Chest palpation & inspection: normal inspection of the chest Resp Effort & Inspection: normal respiratory effort Auscultation: clear to auscultation bilaterally, no crackles, no rales, no rhonchi and no wheezes Cardio Jugular venous distension: no JVD Palpation: normal PMI Rate: regular rate Rhythm: regular rhythm Heart sounds: S1 normal heart sound present, S2 normal heart sound present, no click, no gallops, no murmurs and no rubs Peripheral pulses: Peripheral pulses 2+ throughout GI Inspection: Yes normal to inspection Palpation (GI): Soft to palpation Auscultation: normal bowel sounds Skin General skin exam: no rashes or lesions noted Neuro General: patient oriented x3 Extrem General: Yes normal to inspection, No no pedal edema and No calf tenderness Psych Appearance: grossly normal Mental Status: mental status grossly normal Speech and movement: Normal speech and movement present Office Procedures EKG Details: EKG today shows normal sinus rhythm, rate 90 beats per minute, nonspecific [place]-T, [place] [address]-Doufztlwstffjlrmb, Complete Assessment & Plan Assessment & Plan (1) Palpitations: Code(s): R00.2 - Palpitations Category: Medical Plan: Recently in the emergency room for reports of palpitations where patient was noted to have occasional PVCs. Patient was started on metoprolol 12.5 b.i.d. and states they have improved however patient is still gets them. EKG today was normal. We will get a Holter monitor to assess for any potential arrhythmias. Explained the pathophysiology of PVCs to the patient. We will also get an echo to evaluate for LV systolic and diastolic dysfunction as well as valvular pathology. Blood pressure today is well-controlled. Continue metoprolol for now. Advised regular exercise, weight loss, heart healthy diet, adequate hydration, avoiding stimulants as well as caffeinated beverages, and stress mitigation strategies. Follow-up following echo and Holter. In the interim, patient will call the office with any concerns or change in symptoms. This note was generated using voice recognition software. While every effort has been made to ensure accuracy and proper senior medical transcriptionist, there may be occasional errors that could affect the content or meaning of the described symptoms. Orders: Orders ECG 3 day holter monitor Today R00.2 - Palpitations AMB EKG-In Office Today R00.2 - Palpitations CA echo transthoracic complete Today R00.2 - Palpitations Coding Level of Care Code New Pt Level 4 (72709) Complex EM visit Add On G2211 Diagnoses Palpitations R00.2 CPT Codes EKG - CPT: 34270-Shhmbqqylrbfumdqa, Complete ([id number]) Time Spent (min) 31 Comment Time spent in reviewing the chart, test results, assessment, counseling and documentation.
== END 2025-09-04 15:22 | disposition home or self-care (01) ==
LOC: HO.HCS 14:47
PROVIDERS: PCP Internal Medicine
DX: R00.2 Palpitations (principal)
CPT/HCPCS: 93010; 99204

== ENCOUNTER → 2025-09-04 14:46 | Outpatient (BNVA) | payer OTHER, SELFPAY | PROVIDERS: PCP Internal Medicine | DX: R00.2 Palpitations (principal) | CPT/HCPCS: 93005 ==

== ENCOUNTER 2025-09-18 08:54 | Outpatient (AMB) | payer OTHER, SELFPAY ==
--- OUTSIDE RECORDS SUMMARY | 2024-09-12 08:20 | XMS_ITS ---
Author Organization [facility] Address [address] [facility] [address] [place] [address] Care Team Providers Care Branch Retail Executive Name Role Phone NANO GARCIA M.D. 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 :1995 A ge:29 Y S ex:Female Date:09/12/2024 Address:[address] [place], [place] [id number] Pcp:NANO GARCIA M.D. Subjective: * Chief Complaints: * 1 . 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 * Medical History: Objective: * Vitals: Assessment: Plan: * Treatment: * Images: Billing Information: * Visit Code: * Procedure Codes: * Electronic signature of Martha Kolb MD on 09/18/2025 at 09:06 AM EST Sign off status: Pending * Appointment Provider: Saul Kolb M.D. Date: 11/12/2023 Generated for Liss dunn/Le/Britt on: 11/18/2024 09:06 AM EST
--- OUTSIDE RECORDS SUMMARY | 2024-11-21 07:00 | XMS_ITS ---
Author Organization [facility] Address [address] [place] [phone] Care Team Providers Care Trim Operator Name Role Phone Ronald England Primary Care Provider Zoe Boyd [phone] Medications Medication SIG (Take, Route, Frequency, Duration) Notes Start Date End Date Status Ciclopirox Olamine 0.77 % 1 application Externally Twice a day to skin of feet including between the toes; Duration: 30 days Active LamISIL 250 MG 1 tablet Orally Once a day; Duration: 30 days Active Encounters Encounter Location Date Provider Diagnosis [address] [address] 11/21/2024 Zoe Arrington Plan Of Treatment No Information Progress Notes * Chintan SMITHOB:1995 ([age] yo F)Acc No.[id number]:11/21/2024 Progress Note Patient: Vitor YIPn Provider: Graciela Arrington DPM :1995 A ge:29 Y S ex:Female Date:11/21/2024 Address:[address] [place] [address] [id number] Pcp:Ronald England Subjective: * Chief Complaints: * * Medical History: A nxiety, Depression, Transfusions. * Medications: T aking LamISIL 250 MG Tablet 1 tablet Orally Once a day , Taking Ciclopirox Olamine 0.77 % Cream 1 application Externally Twice a day to skin of feet including between the toes Objective: * Vitals: Assessment: Plan: * Treatment: * Images: * The named appointment provid er may or may not be the originator of this progress note, and it is not deemed complete until electronically signed by the appointment provider. Sign off status: Pending * Provider: Graciela Arrington DPM Date: 0 11/21/2024 Generated for Liss dunn/Le/Britt on: 11/18/2024 09:06 AM EST
--- OUTSIDE RECORDS SUMMARY | 2025-01-16 07:30 | XMS_ITS ---
Author Organization [facility] Address [address] [place] [phone] Care Team Providers Care Machine Pan Greaser Name Role Phone Ronald England Primary Care Provider Zoe Boyd [phone] Medications Medication SIG (Take, Route, Frequency, Duration) Notes Start Date End Date Status Ciclopirox Olamine 0.77 % 1 application Externally Twice a day to skin of feet including between the toes; Duration: 30 days Active LamISIL 250 MG 1 tablet Orally Once a day; Duration: 30 days Active Encounters Encounter Location Date Provider Diagnosis [address] [address] 01/16/2025 Zoe Arrington Plan Of Treatment No Information Progress Notes * Chintan SMITHOB:1995 ([age] yo F)Acc No.[id number]:01/16/2025 Progress Note Patient: Vitor YIPn Provider: Graciela Arrington DPM :1995 A ge:29 Y S ex:Female Date:01/16/2025 Address:[address] [place] [address] [id number] Pcp:Ronald England Subjective: * Chief Complaints: * * Medical History: * Medications: T aking LamISIL 250 MG [...] * Provider: Graciela Arrington DPM Date: 0 01/16/2025 Generated for Liss dunn/Le/Britt on: 11/18/2024 09:06 AM EST
--- OUTSIDE RECORDS SUMMARY | 2025-09-18 09:07 | XMS_ITS | Patient Health Record ---
Author Organization [employer] [facility] Address [address] [place] [address] Care Team Providers Care Chief Risk Officer Name Role Phone NANO GARCIA M.D. Primary Care Provider Es Sheppard Unavailable [phone] Allergies No Known Allergies Results Component Value Reference Range Notes [id number] IGP rfx No Cultur e Under 30 Reviewed date:09/29/2024 02:50:23 PM Interpretation: Performing Lab:[facility], [address], [address], [place], Phone - [phone], Director - [facility] Notes/Report: Clinical Information:Vaginal/Cervical, LMP: [id number] LMP / Prev Treat...TSF=[id number] Dates / Results....First Pap Today No. of containers..01 ThinPrep Vial DIAGNOSIS: NEGATIVE FOR IN TRAEPITHELIAL LESION OR MALIGNANCY. Specimen adequacy: Satisfact ory for evaluation. No endocervical component is identified. Clinician provided ICD10: Z0 1.419 Performed by: Chacorta sun Advance Agent (ASCP) . . Note: The Pap smear [...] [address]anna [address], [address], [place], Phone - [phone], [facility] Notes/Report: Clinical Information:Vaginal/Cervical, LMP: [id number] LMP / Prev Treat...UTS=[id number] Dates / Results....First Pap Today No. of [...] Status Risk Notes Problem Morbid obesity (disorder) (883351555) Morbid (severe) obesity due to excess calories (E66.01) Active confirmed Problem Anxiety disorder (962354286) Anxiety disorder, unspecified (F41.9) Active confirmed Vital Signs Temperature 97.7 degrees Fahrenheit 09/19/2024 Blood pressure diastolic 84 mm Hg 09/19/2024 Height 61 in 09/19/2024 Blood pressure systolic 134 mm Hg 09/19/2024 Weight 300 lbs 09/19/2024 BMI 56.68 kg/m2 09/19/2024 Encounters Encounter Location Date Provider Diagnosis [facility] [address] [place] [address] 09/19/2024 Es Kolb Encounter for surveillance of [...] Name:Es Graciela rey, 10/02/2025 10:00:00 AM, [address], [address], [place], [address], Insurance Providers Payer Name Payer Address Payer Phone Subscriber Number Group Number Insured Name Patient Relationship to Insured Coverage Start Date Coverage End Date [employer] [place] [address] [address] [place] [address] [id number] MAGDALENE SMITH Self - patient is the insured Medical (General) History Medical History History ICD Code Anxiety disorder, unspecified F41.9 Surgical History Surgery Date(Month/Year) Cholecystectomy 03/31/24 Eye Surgery 1996 Hospitalization History Reason Date(Month/Year) See Surgical Hx
--- OUTSIDE RECORDS SUMMARY | 2025-09-18 09:07 | XMS_ITS | Patient Health Record ---
Author Organization [facility] Address [address] [place] [address] Care Team Providers Care Black Top Spreader Machine Operator Name Role Phone Ronald England Primary Care Provider Zoe Boyd Unavailable [phone] Allergies No Known Allergies Reason For Referral [...] Are you an other tobacco user? No Encounters Encounter Location Date Provider Diagnosis [facility] [address] [place] [address] 11/20[facility]20[facility] [address] 01/16/2025 Zoe Arrington Plan Of Treatment Pending Test Test Name Order Date *Liver Function Test (LFT) 09/12/2024 Insurance Providers Payer Name Payer Address Payer Phone Subscriber Number Group Number Insured Name Patient Relationship to Insured Coverage Start Date Coverage End Date [employer] [address] [address] [place], [place] [phone] [id number] Claudette King Self - patient is the insured Medical (General) History Medical History History ICD Code Anxiety Depression Transfusions Surgical History Surgery Date(Month/Year) eye surgery 1996 Gall bladder removal 03/31/2024
[2025-09-18 09:10] VITALS: BP 138/82; PULSE 94; TEMP 36.2; O2SAT 98; BMI 59.3
--- NOTE | 2025-09-18 09:10 | MHC.PC.OV ---
Vital Signs 09/18/25 09:10 Height 5 ft 1 in Weight 314 lb 2 oz BMI 59.3 BP 138/82 Blood Pressure Location Lt brachial Position Sitting Pulse 94 Pulse Source Pulse Oximeter Temp 97.1 F Temp Source Temporal Artery Scan Pulse Oximetry (%) 98 Oxygen Delivery Method Room Air Intake Visit Reasons: Annual Exam Intake Note: Patient is here to follow-up after a visit the emergency department at [facility] on 07/28/25 Network Support Specialist Required: No Wood Room Hand: Not Required per policy Accompanied by: Self / Same As Patient Allergies No Known Allergies (No Known Allergies*) Allergy (Verified 09/18/25 09:19) Medication List - Last Reconciled 09/18/25 by Ysabel Fitzgerald PA-C hydroxyzine HCl 25 mg PO BID PRN metoprolol tartrate 12.5 mg (1/2 x 25 mg) PO BID 30 days Tobacco use date assessed: 08/14/25 Dental Screening Dental Screen Date: 08/14/25 Did you have a dental visit in the last 12 months?: Yes Did you have a dental problem in the last 6 months where you did not have access to dental care?: No Was dental information given to patient?: Patient has dentist HPI Annual Exam HPI Details 30-year-old morbidly obese female with a history of allergy problems last seen 07/2025 by SPINNING BATH PATROLLER coming in for annual exam. In review of the notes, she was seen by cardiology 08/2025 started on Metoprolol 12.5 BID and plan for holter and echo. Presenting for an annual wellness exam and management of new-onset heart palpitations. The patient reports a new onset of heart palpitations, which are better than when the patient initially went to the ER. The patient was seen by cardiology, started on metoprolol twice daily, and is scheduled for a Holter monitor and possibly an echocardiogram on October 07. The patient has a history of anxiety and was prescribed hydroxyzine, which the patient has not needed recently. eye doctor: 07/2025 Chanel pap smear: referral to [facility] crtts vaccines: [facility] Medical History Retinal detachment Anxiety Obesity Otitis media Surgical History History of laparoscopic cholecystectomy (03/31/24) History of eye surgery Family History Father Diabetes Arrhythmia History of high blood pressure Mother Diabetes History of high blood pressure Heart problem Paternal Grandfather Lung cancer Heart problem Other Mental health disorder Social History Housing: House Alcohol intake: current Alcohol intake frequency: holidays/special occasions only Comment: COUNTS CORRECT Patient Tobacco Use Status: Never used Tobacco e-Cigarette/Vaping Use: Never Used Second Hand Smoke Exposure: No service: No Current occupational status: employed Current occupational exposures/hazards: No Cognitive needs: No Hearing needs: No Vision needs: Yes Questionnaire PHQ-9 Over the last 2 weeks, how often have you been bothered by any of the following problems? 1. Little interest or pleasure in doing things: not at all 2. Feeling down, depressed, or hopeless: not at all 3. Trouble falling or staying asleep, or sleeping too much: not at all 4. Feeling tired or having little energy: not at all 5. Poor appetite or overeating: not at all 6. Feeling bad about yourself - or that you are a failure or have let yourself or your family down: not at all 7. Trouble concentrating on things, such as reading the newspaper or watching television: not at all 8. Moving or speaking so slowly that other people could have noticed. Or the opposite - being so fidgety or restless that you have been moving around a lot more than usual: not at all 9. Thoughts that you would be better off or of hurting yourself in some way: not at all Total score: 0 Depression Screening Interpretation: Negative Depression Screening Done: Yes Source: Developed by Drs. Tyshawn Bojorquez, Apple Johnson, Vu Schwartz and colleagues, with an educational jose from [employer]. Thrive Questionnaire Date Thrive assessed: 08/12/25 I am a: Patient What is your living situation today?: I have a steady place to live Within the past 12 months, did the food you bought not last and you didn't have the money to get more?: Never true Within the past 12 months, did you worry whether your food would run out before you got money to buy more?: Never true Do you have trouble paying for medicines?: No Do you have trouble getting transportation to medical appointments?: No Do you have trouble paying your heating and electricity bill?: No Do you have trouble taking care of your child, family member or friend?: No Do you have trouble with day-to-day activities such as bathing, preparing meals, shopping, managing finances, etc.?: No Are you currently unemployed and looking for a job?: No Are you interested in more education?: No Please select the resources that you would like help with: None Currently or been in a relationship where the following occur: No concerns reported THRIVE Score: 0 AUDIT C Alcohol Use Questionnaire (AUDIT-C) 1. How often do you have a drink containing alcohol?: Monthly or less 2. How many drinks containing alcohol do you have on a typical day when you are drinking?: 1 or 2 3. How often do you have six or more drinks on one occasion?: Never Total Score: 1 NAYE-7 AMB Questionnaire NAYE-7 Date NAYE - 7 assessed: 08/14/25 Feeling nervous, anxious, or on edge: 2 = More than half the days Not being able to stop or control worryin = More than half the days Worrying too much about different things: 0 = Not at all Trouble relaxin = Several days Being so restless that it is hard to sit still: 0 = Not at all Becoming easily annoyed or irritable: 1 = Several days Feeling afraid as if something awful might happen: 3 = Nearly every day Total NAYE-7 score (0-4 normal; 5-9 mild; 10-14 moderate; 15-21 severe): 9 Source: Developed by Drs. Tyshawn Bojorquez, Apple Johnson, Vu Schwartz and colleagues, with an educational jose from [employer]. NAYE-7 Assessment Billing NAYE-7 Assessment Tool: NAYE-7 Assessment 35157 Review of Systems Const Denies body aches, Denies fatigue, Denies fever(s), Denies frequent falls, Denies headache(s) and Denies weakness Eyes Reports no additional complaints and Denies change in vision ENT Denies dysphagia, Denies dizziness, Denies facial pain, Denies headache(s), Denies nasal congestion and Denies odynophagia Card Denies chest pain, Denies syncope, Denies irregular heart rhythm, Denies leg edema, Denies lightheadedness and Denies dyspnea Resp Denies cough and Denies dyspnea GI Denies abdominal pain, Denies constipation, Denies dysphagia, Denies dyspepsia, Denies diarrhea, Denies nausea, Denies odynophagia and Denies vomiting Denies urinary frequency, Denies dysuria, Denies urinary hesitancy and Denies urinary urgency Musc Denies back pain and Denies myalgias Skin/Breast Reports system reviewed and no additional complaints, except as documented Neuro Denies dizziness, Denies syncope, Denies frequent falls, Denies headache(s) and Denies weakness Psych Reports no additional complaints Endo Denies fatigue Physical exam (Primary Care) Vital Signs: Last Vital Signs Temp 97.1 F 09/18/25 09:10 Pulse 94 09/18/25 09:10 BP 138/82 09/18/25 09:10 Pulse Ox 98 09/18/25 09:10 Oxygen Delivery Method Room Air 09/18/25 09:10 BMI result Body Mass Index 59.3 Tobacco/Smoking Status: Tobacco use Status Tobacco use date assessed 08/14/25 09/18/25 09:17 Patient Tobacco Use Status Never used Tobacco 09/18/25 09:17 Tobacco use type 06/05/24 08:32 e-Cigarette/Vaping Use Never Used 09/18/25 09:17 PHQ-9: PHQ-9 Score PHQ-9: Total score 0 09/18/25 09:19 Depression Screening Interpretation: Negative Thrive Assessment: Date of Thrive Assessment Date Thrive assessed 08/12/25 09/18/25 09:17 Currently or been in a relationship where the following occur: No concerns reported Const General: cooperative, healthy appearing, comfortable and no acute distress Orientation/consciousness: patient oriented x3 HENMT Head: Yes normocephalic Ears: hearing grossly normal bilaterally, external ears normal, TM's normal bilaterally and EAC's normal General nose exam: Normal external nose present Face and sinus: Yes normal facial exam and Yes sinuses nontender Mouth: Normal oral and palatal mucosa present and tongue normal Throat: Yes posterior oropharynx normal Eyes General: appearance normal, both eyes and all related structures Conjunctivae: conjunctivae normal Pupils: Equal, round and reactive pupils present EOM: EOMs intact bilaterally and No Nystagmus present Neck Neck: Yes normal visual inspection, Yes full ROM and Yes no lymphadenopathy Chest Chest palpation & inspection: normal inspection of the chest Resp Effort & Inspection: normal respiratory effort Auscultation: clear to auscultation bilaterally, no crackles, no rales, no rhonchi, no wheezes and breath sounds present Cardio Rate: regular rate Rhythm: regular rhythm Peripheral pulses: radial pulses present and dorsalis pedis present GI Inspection: Yes normal to inspection and No Abdominal wall edema Palpation (GI): Soft to palpation, not firm and nontender Auscultation: normal bowel sounds Rectal Exam - Female: deferred General: Yes no CVA tenderness Back/Spine/Pelvis Back: no CVA tenderness Skin General skin exam: no rashes or lesions noted Neuro General: patient oriented x3 Cranial nerves: Yes Equal, round and reactive pupils present, Yes Midline tongue present, Yes Ability to bilaterally elevate shoulders present and No Nystagmus present Gait exam (Neuro): Normal gait present Extrem General: Yes normal to inspection, Yes full ROM, No no pedal edema and No edema Psych Speech and movement: Normal speech and movement present Affect: normal affect Insight: Good insight present (Psych) Judgement: Good judgement present (Psych) Coding Level of Care Code Est Pt Prev Care 18-39y(44344) Diagnoses Annual physical exam Z00.00 Anxiety F41.9 ADHD (attention deficit hyperactivity disorder) F90.9 Palpitations R00.2 Morbid obesity E66.01 Additional Codes NAYE-7 Assessment Billing - NAYE-7 Assessment Tool: NAYE-7 Assessment 80132 ([id number]) Assessment & Plan Assessment & Plan (1) Annual physical exam: Code(s): Z00.00 - Encounter for general adult medical examination without abnormal findings Category: Medical Plan: Patient is up to date on all recommended routine screenings and vaccinations for her age. I did order for updated blood work as she is due. Healthy diet and regular exercise is encouraged. Plan to follow up in 3 months or sooner as needed. (2) Anxiety: Code(s): F41.9 - Anxiety disorder, unspecified Category: Medical Plan: The patient has a history of anxiety and experienced a panic attack with the initial palpitation episode. A new referral will be placed for psychiatry, and the patient was instructed to use the patient portal for any communication issues. (3) ADHD (attention deficit hyperactivity disorder): Code(s): F90.9 - Attention-deficit hyperactivity disorder, unspecified type Category: Medical Plan: Patient missed appointments with the outpatient psych clinic but is still interested in being seen by them. Referral was placed today. (4) Palpitations: Code(s): R00.2 - Palpitations Category: Medical Plan: The patient reports new-onset palpitations, which are improving on metoprolol. The underlying cause is being investigated by cardiology. The patient will continue metoprolol twice daily and will follow up with cardiology on October 07 for a Holter monitor and possible echocardiogram. Medication refills can be provided by this office or by the control room supervisor. (5) Morbid obesity: Code(s): E66.01 - Morbid (severe) obesity due to excess calories Category: Medical Plan: The patient inquired about weight loss injections. A discussion was held regarding the use of these medications as a tool alongside diet and exercise. A prescription for a once-weekly injectable GLP-1 receptor agonist will be sent, though it may not be covered by insurance. The patient was counseled on side effects such as nausea and the importance of a high-protein diet, avoiding carbohydrates, and maintaining hydration. The patient was advised to monitor for difficulty swallowing, neck lumps, or neck swelling, given the family history of a possible thyroid issue. Follow-up visits will be required every three months while on this medication, with lab work repeated a few months after initiation. Plan This note was constructed using voice recognition software. While every effort has been made to ensure accuracy and shell mold bonding machine operator, still areas may have been included sometimes these areas may affect the content or meeting of the given symptoms. Total time spent caring for the patient today was 30 minutes. This includes time spent before the visit reviewing the chart, time spent during the visit, and time spent after the visit and documentation. Patient was informed and consented to the use of ambient scribe. Orders: Orders Complete Blood Count Auto Diff Today Z13.0 - Encounter for screening for diseases of the blood and blood-forming organs and certain disorders involving the immune mechanism Comprehensive Met. Panel Today Z00.00 - Encounter for general adult medical examination without abnormal findings TSH reflex Free T4 Today Z13.29 - Encounter for screening for other suspected endocrine disorder Vitamin D 25-OH Total Today Z13.21 - Encounter for screening for nutritional disorder Hemoglobin A1c Today Z13.1 - Encounter for screening for diabetes mellitus Vitamin B12 and Folate Today Z13.21 - Encounter for screening for nutritional disorder Lipid Panel Today Z13.220 - Encounter for screening for lipoid disorders Referrals DEHYDROGENATION OPERATOR Referral Z12.4 - Encounter for screening for malignant neoplasm of cervix Psychiatry Outpatient Consultation Service F90.9 - Attention-deficit hyperactivity disorder, unspecified type Medications: New semaglutide (weight loss) (Joey) administer weeks 1 through 4 of therapy 0.25 mg (0.5 mL) subcut QWEEK 2 mL 0RF E66.01 - Morbid (severe) obesity due to excess calories
== END 2025-09-18 09:42 | disposition home or self-care (01) ==
LOC: HO.HMCH 08:55
PROVIDERS: PCP Internal Medicine
DX: Z00.00 Encounter for general adult medical examination without abnormal findings (principal); F41.9 Anxiety disorder, unspecified; E66.01 Morbid (severe) obesity due to excess calories; Z68.43 Body mass index [BMI] 50.0-59.9, adult; F90.9 Attention-deficit hyperactivity disorder, unspecified type; R00.2 Palpitations

== ENCOUNTER → 2025-09-18 08:54 | Outpatient (BNVA) | payer OTHER, SELFPAY | PROVIDERS: PCP Internal Medicine | DX: Z00.00 Encounter for general adult medical examination without abnormal findings (principal); R00.2 Palpitations; F41.9 Anxiety disorder, unspecified; F90.9 Attention-deficit hyperactivity disorder, unspecified type; E66.01 Morbid (severe) obesity due to excess calories; Z68.43 Body mass index [BMI] 50.0-59.9, adult | CPT/HCPCS: 96127 ==

== ENCOUNTER → 2025-10-07 13:56 | Outpatient (REF) | payer OTHER, SELFPAY ==
--- OUTSIDE RECORDS SUMMARY | 2024-09-12 08:20 | XMS_ITS ---
Author Organization [facility] Address [address] [address] Care Team Providers Care Building Architectural Designer Name Role Phone NANO GARCIA M.D. 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 :1995 A ge:29 Y S ex:Female Date:09/12/2024 Address:[address] [place] [address] Pcp:NANO GARCIA M.D. Subjective: * Chief Complaints: * 1 . 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 * Medical History: Objective: * Vitals: Assessment: Plan: * Treatment: * Images: Billing Information: * Visit Code: * Procedure Codes: * Electronic signature of Martha Kolb MD on 10/07/2025 at 09:40 PM EST Sign off status: Pending * Appointment Provider: Saul Kolb M.D. Date: 1 11/12/2023 Generated for Printi ng/Faxing/eTransmitting on: 1 12/08/2024 09:40 PM EST
--- OUTSIDE RECORDS SUMMARY | 2024-11-21 07:00 | XMS_ITS ---
Author Organization [facility] Address [address] [place] [phone] Care Team Providers Care Donor Recruiter Name Role Phone Ronald England Primary Care Provider Zoe Boyd [phone] Medications Medication SIG (Take, Route, Frequency, Duration) Notes Start Date End Date Status Ciclopirox Olamine 0.77 % 1 application Externally Twice a day to skin of feet including between the toes; Duration: 30 days Active LamISIL 250 MG 1 tablet Orally Once a day; Duration: 30 days Active Encounters Encounter Location Date Provider Diagnosis [address] [address] 11/21/2024 Zoe Arrington Plan Of Treatment No Information Progress Notes * Chintan SMITHOB:1995 ([age] yo F)Acc No.[id number]:11/21/2024 Progress Note Patient: Vitor YIPn Provider: Graciela Arrington DPM :1995 A ge:29 Y S ex:Female Date:11/21/2024 Address:[address] [place] [address] [id number] Pcp:Ronald England Subjective: * Chief Complaints: * [...] 0 11/21/2024 Generated for Liss dunn/Le/Britt on: 12/08/2024 09:40 PM EST
--- OUTSIDE RECORDS SUMMARY | 2025-01-16 07:30 | XMS_ITS ---
Author Organization [facility] Address [address] [place] [address] Care Team Providers Care Flight Technician Name Role Phone Ronald England Primary Care Provider Zoe Boyd [phone] Medications Medication SIG (Take, Route, Frequency, Duration) Notes Start Date End Date Status Ciclopirox Olamine 0.77 % 1 application Externally Twice a day to skin of feet including between the toes; Duration: 30 days Active LamISIL 250 MG 1 tablet Orally Once a day; Duration: 30 days Active Encounters Encounter Location Date Provider Diagnosis [address] [address] 01/16/2025 Zoe Arrington Plan Of Treatment No Information Progress Notes * Chintan SMITHOB:1995 ([age] yo F)Acc No.[id number]:01/16/2025 Progress Note Patient: Vitor YIPn Provider: Graciela Arrington DPM :1995 A ge:29 Y S ex:Female Date:01/16/2025 Address:[address] [place] [address] [id number] Pcp:Ronald England Subjective: * Chief Complaints: * [...] 0 01/16/2025 Generated for Liss dunn/Le/Britt on: 1 12/08/2024 09:39 PM EST
--- NOTE | 2025-10-07 13:59 | CA_ITS ---
Transthoracic Echocardiogram Patient (Last, First, Middle): Claudette King E Gender: Female Date of : 1995 Age: 30 Procedure Date: 10/07/2025 Procedure Type: Transthoracic Echocardiogram Location: OP Height: 154.94 cm Weight: 142.43 kg BSA: 2.29 m2 Heart Rate: bpm BP: 138 / 82 mmHg Aviation Support Equipment Repairer: MARIA L Referring MD: Daniel Mora [employer] Refuge Worker: Mat Syed MD Symptoms: R00.2 - Palpitations Study Quality: Fair, contrast ECG Rhythm: Sinus Conclusions: - Essentially normal study Findings Procedure Information Contrast agent, definity, is being given per protocol without apparent complications. Left Ventricle Normal left ventricular size, thickness, and systolic function. Diastolic function is normal for age. Right Ventricle Normal right ventricular cavity size. Atria Both atria are normal in size. There is no evidence of interatrial shunt. Aortic Valve The aortic valve structure and function is likely normal. There is no aortic valve stenosis. There is no aortic valve regurgitation. Mitral Valve Normal mitral valve structure and function. There is trace mitral valve regurgitation. There is no mitral valve stenosis. Pulmonic Valve The pulmonic valve is likely normal. Tricuspid Valve Normal tricuspid valve structure. Tricuspid regurgitation envelope is inadequate for calculation of right ventricular systolic pressure. Normal right atrial pressure. There is no evidence of pulmonary hypertension. Great Vessels All visible segments of the aorta are normal in size. The pulmonary artery was not well visualized. Venous The inferior vena cava is normal in size and collapses greater than 50% with inspiration. Pericardium/Pleural There is no evidence of pericardial effusion. Prior Study Comparison No prior study available for comparison. Measurements 2D Linear Measurements IVSd: 1.18 0.6-0.9/0.6-1.0 cm LVIDd: 5.13 3.9-5.3/4.2-5.9 cm LVIDd Index: 2.24 2.4-3.2/2.2-3.1 cm/m2 LVIDs: 3.12 2.0-3.6 cm LVPWd: 0.92 0.7-1.1 cm LA Diam: 3.90 2.7-3.8/3.0-4.0 cm LAIDs Index: 1.70 1.5-2.3 cm/m2 LV Mass: 251.83 67-162/88-224 g LV Mass Index: 109.97 43-95/49-115 g/m2 LVOT Diam: 2.00 3.0+(-)1.3 cm 2D Systolic Function EF 4C: 65.30 >55% EF 2C: 52.10 >55% EF BiP: 60.40 >55% Mitral Valve MV Pk E: 0.92 MV PK A: 0.77 MV Decel Time: 186.00 E/A: 1.20 E'Lateral: 15.00 E'Medial: 9.79 E/E' Med: 9.40 E/E' Lat: 6.10 PHT: 54.00 MVA PHT: 4.07 Decel [place]: 4.96 Aortic Valve AoV Pk Phill: 1.61 AoV Mn Phill: 1.16 AoV VTI: 0.35 AoV Pk Grad: 10.00 Aov Mn Grad: 6.00 ROMELIA Cont.VTI: 1.99 LVOT LVOT Pk Phill: 1.04 LVOT Mn Phill: 0.76 LVOT VTI: 0.22 LVOT Pk Grad: 4.00 LVOT Mn Grad: 3.00 LVOT Diam: 2.00 LVOT Area: 3.14 Diastolic Function MV Pk E: 0.92 MV Pk A: 0.77 E/A: 1.20 E'Medial: 9.79 E/E' Med: 9.40 E' Laterial: 15.00 E/E' Lat: 6.10 Right Ventricle TAPSE (mm): 27.70 TVS' Phill: 13.90 Tricuspid Valve RA Press: 3.00 Great Vessels Aorta Sinus of Valsalva: 3.21 2.0-3.[address] [place]: 2.81 1.7-3.4 cm Ao Asc: 3.00 2.1-3.4 cm Pulmonary Veins Pulm Vein S/D 0.90 Updated in Other Vendor System with Status of Final Mat Syed MD electronically signed on 10/08/2025 2:27:04 PM with status of Final
--- OUTSIDE RECORDS SUMMARY | 2025-10-07 21:41 | XMS_ITS | Patient Health Record ---
Author Organization [facility] Address [address] [place] [address] [address] [place] [address] Care Team Providers Care Door Assembler Name Role Phone NANO GARCIA M.D. Primary Care Provider Es Sheppard Unavailable [phone] Allergies No Known Allergies Reason For Referral No Information Medications Medication SIG (Take, Route, Fr equency, Duration) Notes Start Date End Date Status Terbinafine HCl 250 MG Oral; Duration: 30 Days Active hydrOXYzine HCl 25 MG TAKE 1 TABLET BY M OUT TWICE DAILY NEEDED FOR ANXIETY Oral; Duration: [...] Status Risk Notes Problem Morbid obesity (disorder) (214011758) Morbid (severe) obesity due to excess calories (E66.01) Active confirmed Problem Anxiety disorder (452580867) Anxiety disorder, unspecified (F41.9) Active confirmed Plan Of Treatment No Information Insurance Providers Payer Name Payer Address Payer Phone Subscriber Number Group Number Insured Name Patient Relationship to Insured Coverage Start Date Coverage End Date [employer] [address] [address] [place] [address] [id number] MAGDALENE SMITH Self - patient is the insured Medical (General) History Medical History History ICD Code Anxiety disorder, unspecified F41.9 Surgical History Surgery Date(Month/Year) Cholecystectomy 03/31/24 Eye Surgery 1996 Hospitalization History Reason Date(Month/Year) See Surgical Hx
== END ==
LOC: HO.CARD 13:56
PROVIDERS: PCP Internal Medicine
DX: R00.2 Palpitations (principal)
CPT/HCPCS: 93242; 93306; Q9957

== ENCOUNTER → 2025-10-07 13:59 | Outpatient (BNV) | payer OTHER, SELFPAY | PROVIDERS: PCP Internal Medicine; Visit Provider Internal Medicine Cardiovascular Disease | DX: R00.2 Palpitations (principal) | CPT/HCPCS: 93306 ==